=== PATIENT | male | born 1940 | race Caucasian/White ===

== ENCOUNTER 2018-11-04 22:15 | Inpatient (IN) ==
[2018-11-04] MEDS ORDERED: *HR* Dextrose 50 % in Water (Syg) 50 ML SYRINGE IVP ONE (22:28)
[2018-11-04] MEDS ORDERED: 0.9 % Sodium Chloride 1,000 ML IV ONE ×2 (22:29→23:53)
[2018-11-04] MEDS ORDERED: *HR* Dextrose 50 % in Water (Syg) 50 ML SYRINGE ONE (22:45)
[2018-11-04 23:00] LABS: Basophils % 0.1 %; Eosinophils % 0.1 %; Hematocrit 34.3 % (37.5-50.1); Immature Granulocytes % 0.7 % (0-4); Lymphocytes % 6.5 %; Mean Corpuscular HGB Conc 32.1 g/dL (31.6-35.5); Mean Corpuscular Hemoglobin 30.1 pg (28.0-33.3); Mean Corpuscular Volume 93.7 fL (83.0-100.0); Mean Platelet Volume 9.9 fL (9.4-12.4); Monocytes # 1.6 K/mcL (0.0-1.3); Monocytes % 10.2 %; Neutrophils # 12.6 K/mcL (1.6-8.9); Platelet Count 282 K/mcL (140-400); Red Blood Count 3.66 M/mcL (4.19-5.50); Red Cell Distribution Width 15.3 % (11.5-14.5); Segmented Neutrophils % 82.4 %; White Blood Count 15.3 K/mcL (4.3-11.1)
--- NOTE | 2018-11-04 23:14 | Emergency Department Note ---
Disposition Clinical Impression: Hypoglycemia, KANDIS (acute kidney injury), Pyelonephritis Disposition: Admitted As Inpatient Condition: Fair Time of Disposition: 05:45 General Adult HPI - General Chief complaint: ED General Medical Stated complaint: Low blood sugar Time Seen by Provider: 11/04/18 22:25 Source: patient, family, EMS Limitations: no limitations Nursing Notes Reviewed: Yes Vital Signs Reviewed: Yes - History of Present Illness HPI Narrative: Alejandro Horton is a 78-year-old male with past medical history of type 2 diabetes, and hypertension who presents via ambulance from home with hypoglycemia. The patient was found to have a point of care blood sugar of 49 by EMS. Oral glucose via jalousies installer raised the blood sugar to the mid 50s. Upon arrival the patient is alert and oriented, and responding appropriately to questions. He states that he has not eaten or drank in the past 2 days, and he woke up with nausea and vomiting this morning. Denies any fevers, chills, shortness of breath, chest pain, constipation, diarrhea. He states that 2 days ago he drove 140 miles from [facility] in a car without air conditioning, and has not felt well since. The patient also admits to taking his diabetes medicine for the past 2 days as well even without eating or drinking. He currently takes Actos, metformin, and glyburide. He also endorses a recent history of an obstructing kidney stone with possible pyelo-nephritis. Patient also had a mechanical fall earlier today. He denies hitting his head he denies the use of blood thinner. His states he tripped on a rug near the back do or and she held him up. Pain Scale: 0 - Related Data Home Medications Medication Instructions Recorded Confirmed Aspirin 81 mg PO DAILY 10/13/16 11/04/18 GlipiZIDE XL (24 HR) [Glucotrol XL] 10 mg PO BID 10/13/16 11/04/18 Lisinopril [Zestril] 40 mg PO DAILY 10/13/16 11/04/18 Metformin HCl [Glucophage] 1,000 mg PO BID 10/13/16 11/04/18 Pioglitazone HCl [Actos] 30 mg PO HS 10/13/16 11/04/18 Simvastatin [Zocor] 40 mg PO DAILY 10/13/16 11/04/18 hydroCHLOROthiazide 25 mg PO DAILY 10/13/16 11/04/18 [Hydrochlorothiazide] Allergies Allergy/AdvReac Type Severity Reaction Status Date / Time chocolate flavor Allergy Rash Verified 10/16/18 02:53 All systems ED: reviewed and negative except as stated. Constitutional: Reports: weakness. Denies: fever, chills Cardiovascular: Denies: chest pain Respiratory: Denies: cough, dyspnea, wheezes Gastrointestinal: Reports: nausea, vomiting. Denies: diarrhea, constipation Genitourinary: Denies: urgency, dysuria Neurological: Reports: weakness. Denies: headache, numbness, paresthesias, confusion Endocrine: Reports: fatigue. Denies: polydipsia, polyuria Past Medical History - Past Medical History Medical history: Reports: diabetes, hypertension Psychiatric history: Reports: no psych history - Social History Smoking Status: Never smoker Smokeless Tobacco Status: No Alcohol use: Reports: none Drug use: Reports: none Physical Exam GENERAL EXAM Vital signs noted, please see nurses notes. General: Well-developed, well-nourished patient lying in bed who appears non- toxic. Head: Atraumatic, normocephalic. Eyes: Sclera anicteric. ENT: Mucous membranes are dry. Heart: Regular rate and rhythm without appreciable murmur, gallops, or rubs. Lungs: Normal respiratory pattern without distress, lungs clear to auscultation b/l. Abdomen: Soft, non-tender, non-distended, no guarding or peritoneal signs. Skin: Warm, Forehead is diaphoretic There are some scattered abrasions to the left lower extremity. Neurologic: Awake and alert with normal speech and mental status. Pupils are equal. Moves all extremities equally well. No focal deficits or lateralizing signs. Psychiatric: Mood and affect appropriate. Musculoskeletal: No peripheral edema. No signs of DVT. - General Limitations: no limitations General appearance: alert Course Course Narrative: Patient came in with a blood sugar of 49. An amp of D50 was provided, a saline bolus was provided, and basic labs were drawn to rule out infection. - Reevaluation(s) Reevaluation #1: 11:20 PM, repeat blood sugar was 147. The patient is resting comfortably. Reevaluation #2: The blood sugar was 112 Time: 00:52 Vital Signs Temperature 100.2 F H 11/04/18 22:22 Pulse Rate 88 11/04/18 22:22 Respiratory Rate 18 11/04/18 22:22 Blood Pressure 137/64 11/04/18 22:22 O2 Sat by Pulse Oximetry 96 11/04/18 22:22 Temperature 99.0 F 11/05/18 03:02 Pulse Rate 86 11/05/18 03:02 Respiratory Rate 16 11/05/18 03:02 Blood Pressure 127/71 11/05/18 03:02 O2 Sat by Pulse Oximetry 97 11/05/18 03:02 Oxygen Delivery Oxygen Delivery Room Air Medical Decision Making - MDM Narrative Medical decision making narrative: The patient was treated upon arrival in the emergency department. His medical history was reviewed and, they detailed history and physical exam was obtained from the patient. A point of care glucose was taken at the bedside, and was 47. The patient was provided with an orange juice. Basic labs labs were ordered, as well as blood cultures and a lactate. An EKG, and CT of the abdomen and pelvis were ordered. Additionally the patient was provided with an amp of D50 to increase his blood sugar. Repeat blood sugar after D50 was in the 160s. Blood sugars were drawn every 30 minutes. The patient had underlying nausea and vomiting, prior to the hypoglycemic episode. An infectious cause is the most likely etiology, as he recently was at the hospital for an obstructing kidney stone, that showed signs of perinephric fat stranding, with possible pyelonephritis. The patient does have an elevated white count at 15.3 with a left shift, and an acute kidney injury. Fluids were be provided for the acute kidney injury. CT of the abdomen and pelvis showed the aforementioned stone had most likely passed, there was no obstruction, but there was most likely an acute inflammatory process, with possible pyelonephritis. Urinalysis showed a urinary tract infection. We will provide 2 g of IV Rocephin for the infection. The patient will be admitted to the hospital under the care of Dr. Field. He is in agreement with this plan. - Medical Records Medical records reviewed: Yes I reviewed the patient's medical records. - Lab Data Lab results reviewed: Yes I reviewed the patient's lab results. Result diagrams: 11/05/18 04:57 11/04/18 22:47 Lab Results 11/04/18 11/04/18 11/04/18 Range/Units 22:47 22:47 22:47 WBC 15.3 H (4.3-11.1) K/mcL RBC 3.66 L (4.19-5.50) M/mcL Hgb 11.0 L (12.9-16.9) g/dL Hct 34.3 L (37.5-50.1) % MCV 93.7 (83.0-100.0) fL MCH 30.1 (28.0-33.3) pg MCHC 32.1 (31.6-35.5) g/dL RDW 15.3 H (11.5-14.5) % Plt Count 282 (140-400) K/mcL MPV 9.9 (9.4-12.4) fL Immature Gran % 0.7 (0-4) % Seg Neutrophils % 82.4 % Lymphocytes % 6.5 % Monocytes % 10.2 % Eosinophils % 0.1 % Basophils % 0.1 % Neutrophils # 12.6 H (1.6-8.9) K/mcL Lymphocytes # 1.0 (0.6-4.6) K/mcL Monocytes # 1.6 H (0.0-1.3) K/mcL Eosinophils # 0.0 (0.0-0.6) K/mcL Basophils # 0.0 (0.0-0.2) K/mcL Sodium 135 L (136-145) mEq/L Potassium 3.8 (3.5-5.1) mEq/L Chloride 102 (98-107) mEq/L Carbon Dioxide 21 L (23-29) mEq/L BUN 56 H (8-23) mg/dL Creatinine 2.51 H (0.70-1.30) mg/dL Est GFR ( Amer) 30 L (> 60) Est GFR (Non-Af Amer) 25 L (> 60) BUN/Creatinine Ratio 22 (6-26) Glucose 42 L (70-105) mg/dL Calculated Osmolality 292 (280-300) Lactic Acid 0.8 (0.5-2.2) mmol/L Calcium 8.4 L (8.6-10.3) mg/dL Total Bilirubin 0.4 (0.3-1.0) mg/dL AST 32 (13-39) Units/L ALT 21 (7-52) Units/L Alkaline Phosphatase 62 (34-104) Units/L Serum Total Protein 6.6 (6.4-8.9) g/dL Albumin 3.3 L (3.5-5.7) g/dL Globulin 3.3 (2.4-3.5) g/dL Albumin/Globulin Ratio 1.0 L (1.1-2.2) Urine Color (Yellow) Urine Clarity (Clear) Urine pH (5.0-8.0) pH Units Ur Specific [place] (1.010-1.025) Urine Protein (Neg-Trace) mg/dL Urine Glucose (UA) (Normal) mg/dL Urine Ketones (Negative) mg/dL Urine Blood (Negative) Urine Nitrite (Negative) Urine Bilirubin (Negative) Urine Urobilinogen (Normal) mg/dL Ur Leukocyte Esterase (Negative) Urine Microscopic RBC (0-3) per hpf Urine Microscopic WBC (0-3) per hpf Ur Squamous Epith Cells (None-Few) per lpf Urine Bacteria (None-Few) per hpf Hyaline Casts (None-Few) per lpf Ur Culture Indicated? (NO) 11/05/18 Range/Units 00:35 WBC (4.3-11.1) K/mcL RBC (4.19-5.50) M/mcL Hgb (12.9-16.9) g/dL Hct (37.5-50.1) % MCV (83.0-100.0) fL MCH (28.0-33.3) pg MCHC (31.6-35.5) g/dL RDW (11.5-14.5) % Plt Count (140-400) K/mcL MPV (9.4-12.4) fL Immature Gran % (0-4) % Seg Neutrophils % % Lymphocytes % % Monocytes % % Eosinophils % % Basophils % % Neutrophils # (1.6-8.9) K/mcL Lymphocytes # (0.6-4.6) K/mcL Monocytes # (0.0-1.3) K/mcL Eosinophils # (0.0-0.6) K/mcL Basophils # (0.0-0.2) K/mcL Sodium (136-145) mEq/L Potassium (3.5-5.1) mEq/L Chloride (98-107) mEq/L Carbon Dioxide (23-29) mEq/L BUN (8-23) mg/dL Creatinine (0.70-1.30) mg/dL Est GFR ( Amer) (> 60) Est GFR (Non-Af Amer) (> 60) BUN/Creatinine Ratio (6-26) Glucose (70-105) mg/dL Calculated Osmolality (280-300) Lactic Acid (0.5-2.2) mmol/L Calcium (8.6-10.3) mg/dL Total Bilirubin (0.3-1.0) mg/dL AST (13-39) Units/L ALT (7-52) Units/L Alkaline Phosphatase (34-104) Units/L Serum Total Protein (6.4-8.9) g/dL Albumin (3.5-5.7) g/dL Globulin (2.4-3.5) g/dL Albumin/Globulin Ratio (1.1-2.2) Urine Color Yellow (Yellow) Urine Clarity Cloudy A (Clear) Urine pH 5.5 (5.0-8.0) pH Units Ur Specific [place] 1.016 (1.010-1.025) Urine Protein 100 H (Neg-Trace) mg/dL Urine Glucose (UA) Normal (Normal) mg/dL Urine Ketones Negative (Negative) mg/dL Urine Blood Moderate H (Negative) Urine Nitrite Positive A (Negative) Urine Bilirubin Negative (Negative) Urine Urobilinogen Normal (Normal) mg/dL Ur Leukocyte Esterase Moderate H (Negative) Urine Microscopic RBC 5-15 H (0-3) per hpf Urine Microscopic WBC 50-100 H (0-3) per hpf Ur Squamous Epith Cells Many H (None-Few) per lpf Urine Bacteria Many H (None-Few) per hpf Hyaline Casts Few (None-Few) per lpf Ur Culture Indicated? YES A (NO) - Radiology Data Radiology results reviewed: Yes I reviewed the patient's radiology results. Abdomen/Pelvis CT 11/04/18 23:14 IMPRESSION: There are acute inflammatory/edematous changes involving the left kidney. The left kidney is enlarged, there is perinephric and peripelvic fat stranding and there is slight dilatation of the left renal collecting system and ureter with no evidence of an obstructing radiopaque calculus. Recent passage of a calculus is suspected. Manifestation of infection is also a consideration and clinical correlation is recommended. D/ / Dylan Cunningham MD / Dylan Cunningham MD Interpreting Provider: Dylan Cunningham MD Chest X-Ray 11/04/18 23:32 IMPRESSION: No acute findings in the chest. D/ / Bernadine English MD / Bernadine English MD Interpreting Provider: Bernadine English MD - EKG Data EKG #1 EKG results narrative: EKG was interpreted by me. The rhythm is normal sinus rhythm, the rate is regular and 89 bpm. The axis is normal. Possible left anterior fascicular block. The QRS duration is within normal limits 102 the QTC is within normal limits 410. There are no ST elevations or depressions and no T-wave inversions or hyper acuity. There is no evidence of pathologic Q waves. The R-wave progression is poor. There is no evidence of WPW, Brugada, HOCM.
[2018-11-04 23:19] LABS: Albumin 3.3 g/dL (3.5-5.7); Bilirubin,Total 0.4 mg/dL (0.3-1.0); Calcium 8.4 mg/dL (8.6-10.3); Globulin 3.3 g/dL (2.4-3.5); Potassium 3.8 mEq/L (3.5-5.1); Total Protein 6.6 g/dL (6.4-8.9)
[2018-11-05 01:04] LABS: Bilirubin,Urine Negative (Negative); Blood,Urine Moderate (Negative); Clarity,Urine Cloudy (Clear); Color,Urine Yellow (Yellow); Glucose,Urine (UA) Normal (Normal); Ketones,Urine Negative (Negative); Leukocyte Esterase,Urine Moderate (Negative); Nitrite,Urine Positive (Negative); PH,Urine 5.5 pH Units (5.0-8.0); Protein,Urine 100 mg/dL (Neg-Trace); Specific Gravity,Urine 1.016 (1.010-1.025); Urobilinogen,Urine Normal (Normal)
[2018-11-05 01:07] LABS: Bacteria,Urine Many per hpf (None-Few); Hyaline Casts,Urine Few per lpf (None-Few); Squamous Epithelial Cell,Urine Many per lpf (None-Few); WBC,Urine 50-100 per hpf (0-3)
[2018-11-05] MEDS ORDERED: cefTRIAXone 2,000 MG in Water for inj. (sterile) 20 ML IVP ONE (01:11)
[2018-11-05] MEDS ORDERED: traMADol 50 MG TABLET PO PRN (01:38)
[2018-11-05] MEDS ORDERED: Acetaminophen 325 MG TABLET PO PRN (01:38)
[2018-11-05] MEDS ORDERED: Naloxone 0.4 MG/ML INJ IVP PRN (01:38)
[2018-11-05] MEDS ORDERED: *HR* Dextrose 50 % in Water (Syg) 50 ML SYRINGE IVP PRN (01:39)
[2018-11-05] MEDS ORDERED: Dextrose Gel 15 GM/37.5 ML TUBE PO PRN ×2 (01:39)
[2018-11-05] MEDS ORDERED: 0.9 % Sodium Chloride 1,000 ML IVC SCH (01:45)
[2018-11-05] MEDS ORDERED: Ondansetron 4 MG/2 ML VIAL IVP ONE (01:47)
--- NOTE | 2018-11-05 02:05 | Internal Med History&Physical ---
Date of Encounter: 11/05/18 Time of Encounter: 02:04 Internal Medicine - H&P: HPI Chief complaint: AMS Admitted From: Home Plans for Post Hospital Care: Home History of present illness: Alejandro Horton is a 78-year-old man with hypertension and diabetes who has been feeling unwell over the last few days and was brought to the emergency room via EMS for hypoglycemia. It is stated that he was found with a glucose of 49, reporting he had not eaten and drank in the last 2 days because of nausea and vomiting with generalized malaise but continued to take his diabetic medications despite his poor intake. He reports to being diagnosed with an obstructive kidney stone about 2 weeks ago and was to undergo expectant observation for management. In the ER he was found to have low-grade fever with lab work rem arkable for leukocytosis and elevated serum creatinine. His urine was cloudy with nitrites, leukocyte esterase and pyuria. CT scan showed inflammatory/edematous changes involving the left kidney area nephric and peripelvic fat stranding and slight dilation of the left renal collecting system with no evidence of an obstructing calculus suggesting recent passage of one. He tells me his urine output has been poor over the last few days because of all of this. He was started on fluids and empiric antibiotics, admitted for ongoing care. Vitals: Reviewed General: Elderly man who appears to have malaise and lying on his right side. Skin: Warm, dry. HEENT: Dry mucous membranes. No conjunctivae pallor. Neck: No lymphadenopathy. No JVD. No carotid bruits. No palpable thyroid. Chest: Normal thoracic expansion. Normal breath sounds. Clear to auscultation. Heart: Normal S1 & S2; rhythmic. No rubs or murmurs. Abdomen: Non-distended, soft and non-tender to palpation. No peritoneal reaction. Extremities: No clubbing, cyanosis. 1+ lower extremity edema. No calf tenderness. Normal distal pulses. Neurological: Awake, alert and oriented to person, place and time. No focal deficits. Psych: Affect appropriate. Assessment/Plan 1. Pyelonephritis: As evidenced by the inflammatory kidney changes seen on imaging with leukocytosis, low grade fever and a notable urinalysis likely stemming from the recent obstructive calculus seen on CT of 10/16. Blood and urine cultures have been obtained. Will keep him empirically on ceftriaxone pending culture data, fluid resuscitation, analgesics/antipyretics as needed. 2. Hypoglycemia: Secondary to poor oral intake from nausea and vomiting while continuing to take antidiabetic medications. Will hold all agents for now, start diet as tolerated and monitor him on insulin sliding scale. 3. Acute kidney injury: Pre-renal in etiology from volume depletion. Will continue fluid resuscitation and monitor BMP. 4. Hypertension: Will hold HCTZ and Lisinopril for now due to dehydration and KANDIS, also noting that his BP values are towards the lower end of normal. Once more stabilized and homeostasis is achieved, these agents can be resumed. 5. Diabetes: Trending his A1C values that go back to 2013, the highest value is 6.4% which is not consistent with the diagnosis of diabetes. It is unclear where he was formally diagnosed with this and placed on 3 different oral agents for diabetes a it appears pre-diabetes is more consistent with his values and perhaps does not require such aggressive therapies. Communication with his PCP will be necessary and review of outside lab values if available. Past Med Surg Social Fam HX - Past Medical History Medical history: diabetes, hypertension Psychiatric history: no psych history - Social History Smoking Status: Never smoker Smokeless Tobacco Status: No Alcohol use: none Drug use: none Internal Medicine - H&P: Meds Aspirin 81 mg PO DAILY 10/13/16 [History] GlipiZIDE XL (24 HR) [Glucotrol XL] 10 mg PO BID 10/13/16 [History] Lisinopril [Zestril] 40 mg PO DAILY 10/13/16 [History] Metformin HCl [Glucophage] 1,000 mg PO BID 10/13/16 [History] Pioglitazone HCl [Actos] 30 mg PO HS 10/13/16 [History] Simvastatin [Zocor] 40 mg PO DAILY 10/13/16 [History] hydroCHLOROthiazide [Hydrochlorothiazide] 25 mg PO DAILY 10/13/16 [History] Allergy/AdvReac Type Severity Reaction Status Date / Time chocolate flavor Allergy Rash Verified 10/16/18 02:53 All Systems PM: A 10-system review of systems was performed and is negative for pertinent findings except as documented above in the HPI. Family history reviewed and found non-contributory. - Constitutional Vitals: Temp Pulse Resp BP Pulse Ox 100.2 F H 88 18 118/62 95 11/04/18 22:22 11/04/18 23:26 11/05/18 01:55 11/05/18 01:55 11/04/18 23:26 Exam: . Internal Med - H&P Results - Labs CBC & Chem 7: 11/04/18 22:47 11/04/18 22:47 Labs: Short CBC 11/04/18 Range/Units 22:47 WBC 15.3 H (4.3-11.1) K/mcL Hgb 11.0 L (12.9-16.9) g/dL Hct 34.3 L (37.5-50.1) % Plt Count 282 (140-400) K/mcL Neutrophils # 12.6 H (1.6-8.9) K/mcL BMP 11/04/18 22:47 Sodium 135 L Potassium 3.8 Chloride 102 Carbon Dioxide 21 L BUN 56 H Creatinine 2.51 H Glucose 42 L Calcium 8.4 L Liver Function 11/04/18 Range/Units 22:47 Total Bilirubin 0.4 (0.3-1.0) mg/dL AST 32 (13-39) Units/L ALT 21 (7-52) Units/L Alkaline Phosphatase 62 (34-104) Units/L Albumin 3.3 L (3.5-5.7) g/dL Urine 11/05/18 Range/Units 00:35 Urine Color Yellow (Yellow) Urine Clarity Cloudy A (Clear) Urine pH 5.5 (5.0-8.0) pH Units Ur Specific [place] 1.016 (1.010-1.025) Urine Protein 100 H (Neg-Trace) mg/dL Urine Glucose (UA) Normal (Normal) mg/dL - Impressions ITS Impressions Abdomen/Pelvis CT 11/04/18 23:14 IMPRESSION: There are acute inflammatory/edematous changes involving the left kidney. The left kidney is enlarged, there is perinephric and peripelvic fat stranding and there is slight dilatation of the left renal collecting system and ureter with no evidence of an obstructing radiopaque calculus. Recent passage of a calculus is suspected. Manifestation of infection is also a consideration and clinical correlation is recommended. D/ / Dylan Cunningham MD / Dylan Cunningham MD Interpreting Provider: Dylan Cunningham MD Chest X-Ray 11/04/18 23:32 IMPRESSION: No acute findings in the chest. D/ / Bernadine English MD / Bernadine English MD Interpreting Provider: Bernadine English MD - Time Spent With Patient Total time spent is greater than 50% in coordination of care (as documented) at patient's floor/unit and/or counseling patient: Greater than 35 minutes
--- NOTE | 2018-11-05 02:13 | Emergency Department Note ---
Disposition Clinical Impression: Hypoglycemia, KANDIS (acute kidney injury), Pyelonephritis Disposition: Admitted As Inpatient Condition: Fair Time of Disposition: 01:45 General Adult HPI - General Chief complaint: ED General Medical Stated complaint: Low blood sugar Time Seen by Provider: 11/04/18 22:25 Source: patient, family, EMS Limitations: no limitations Nursing Notes Reviewed: Yes Vital Signs Reviewed: Yes - History of Present Illness Pain Scale: 0 - Related Data Home Medications Medication Instructions Recorded Confirmed Aspirin 81 mg PO DAILY 10/13/16 11/04/18 GlipiZIDE XL (24 HR) [Glucotrol XL] 10 mg PO BID 10/13/16 11/04/18 Lisinopril [Zestril] 40 mg PO DAILY 10/13/16 11/04/18 Metformin HCl [Glucophage] 1,000 mg PO BID 10/13/16 11/04/18 Pioglitazone HCl [Actos] 30 mg PO HS 10/13/16 11/04/18 Simvastatin [Zocor] 40 mg PO DAILY 10/13/16 11/04/18 hydroCHLOROthiazide 25 mg PO DAILY 10/13/16 11/04/18 [Hydrochlorothiazide] Allergies Allergy/AdvReac Type Severity Reaction Status Date / Time chocolate flavor Allergy Rash Verified 10/16/18 02:53 Constitutional: Reports: weakness. Denies: fever, chills Cardiovascular: Denies: chest pain Respiratory: Denies: cough, dyspnea, wheezes Gastrointestinal: Reports: nausea, vomiting. Denies: diarrhea, constipation Genitourinary: Denies: urgency, dysuria Neurological: Reports: weakness. Denies: headache, numbness, paresthesias, confusion Endocrine: Reports: fatigue. Denies: polydipsia, polyuria Past Medical History - Past Medical History Medical history: Reports: diabetes, hypertension Psychiatric history: Reports: no psych history - Social History Smoking Status: Never smoker Smokeless Tobacco Status: No Alcohol use: Reports: none Drug use: Reports: none Physical Exam - General Limitations: no limitations General appearance: alert Course Vital Signs Temperature 100.2 F H 11/04/18 22:22 Pulse Rate 88 11/04/18 22:22 Respiratory Rate 18 11/04/18 22:22 Blood Pressure 137/64 11/04/18 22:22 O2 Sat by Pulse Oximetry 96 11/04/18 22:22 Temperature 99.1 F 11/05/18 06:47 Pulse Rate 89 11/05/18 06:47 Respiratory Rate 18 11/05/18 06:47 Blood Pressure 131/71 11/05/18 06:47 O2 Sat by Pulse Oximetry 96 11/05/18 06:47 Oxygen Delivery Oxygen Delivery Room Air Medical Decision Making - Medical Records Medical records reviewed: Yes I reviewed the patient's medical records. - Lab Data Lab results reviewed: Yes I reviewed the patient's lab results. Result diagrams: 11/05/18 04:57 11/04/18 22:47 Lab Results 11/04/18 11/04/18 11/04/18 Range/Units 22:47 22:47 22:47 WBC 15.3 H (4.3-11.1) K/mcL RBC 3.66 L (4.19-5.50) M/mcL Hgb 11.0 L (12.9-16.9) g/dL Hct 34.3 L (37.5-50.1) % MCV 93.7 (83.0-100.0) fL MCH 30.1 (28.0-33.3) pg MCHC 32.1 (31.6-35.5) g/dL RDW 15.3 H (11.5-14.5) % Plt Count 282 (140-400) K/mcL MPV 9.9 (9.4-12.4) fL Immature Gran % 0.7 (0-4) % Seg Neutrophils % 82.4 % Lymphocytes % 6.5 % Monocytes % 10.2 % Eosinophils % 0.1 % Basophils % 0.1 % Neutrophils # 12.6 H (1.6-8.9) K/mcL Lymphocytes # 1.0 (0.6-4.6) K/mcL Monocytes # 1.6 H (0.0-1.3) K/mcL Eosinophils # 0.0 (0.0-0.6) K/mcL Basophils # 0.0 (0.0-0.2) K/mcL Sodium 135 L (136-145) mEq/L Potassium 3.8 (3.5-5.1) mEq/L Chloride 102 (98-107) mEq/L Carbon Dioxide 21 L (23-29) mEq/L BUN 56 H (8-23) mg/dL Creatinine 2.51 H (0.70-1.30) mg/dL Est GFR ( Amer) 30 L (> 60) Est GFR (Non-Af Amer) 25 L (> 60) BUN/Creatinine Ratio 22 (6-26) Glucose 42 L (70-105) mg/dL Calculated Osmolality 292 (280-300) Lactic Acid 0.8 (0.5-2.2) mmol/L Calcium 8.4 L (8.6-10.3) mg/dL Total Bilirubin 0.4 (0.3-1.0) mg/dL AST 32 (13-39) Units/L ALT 21 (7-52) Units/L Alkaline Phosphatase 62 (34-104) Units/L Serum Total Protein 6.6 (6.4-8.9) g/dL Albumin 3.3 L (3.5-5.7) g/dL Globulin 3.3 (2.4-3.5) g/dL Albumin/Globulin Ratio 1.0 L (1.1-2.2) Urine Color (Yellow) Urine Clarity (Clear) Urine pH (5.0-8.0) pH Units Ur Specific [place] (1.010-1.025) Urine Protein (Neg-Trace) mg/dL Urine Glucose (UA) (Normal) mg/dL Urine Ketones (Negative) mg/dL Urine Blood (Negative) Urine Nitrite (Negative) Urine Bilirubin (Negative) Urine Urobilinogen (Normal) mg/dL Ur Leukocyte Esterase (Negative) Urine Microscopic RBC (0-3) per hpf Urine Microscopic WBC (0-3) per hpf Ur Squamous Epith Cells (None-Few) per lpf Urine Bacteria (None-Few) per hpf Hyaline Casts (None-Few) per lpf Ur Culture Indicated? (NO) 11/05/18 Range/Units 00:35 WBC (4.3-11.1) K/mcL RBC (4.19-5.50) M/mcL Hgb (12.9-16.9) g/dL Hct (37.5-50.1) % MCV (83.0-100.0) fL MCH (28.0-33.3) pg MCHC (31.6-35.5) g/dL RDW (11.5-14.5) % Plt Count (140-400) K/mcL MPV (9.4-12.4) fL Immature Gran % (0-4) % Seg Neutrophils % % Lymphocytes % % Monocytes % % Eosinophils % % Basophils % % Neutrophils # (1.6-8.9) K/mcL Lymphocytes # (0.6-4.6) K/mcL Monocytes # (0.0-1.3) K/mcL Eosinophils # (0.0-0.6) K/mcL Basophils # (0.0-0.2) K/mcL Sodium (136-145) mEq/L Potassium (3.5-5.1) mEq/L Chloride (98-107) mEq/L Carbon Dioxide (23-29) mEq/L BUN (8-23) mg/dL Creatinine (0.70-1.30) mg/dL Est GFR ( Amer) (> 60) Est GFR (Non-Af Amer) (> 60) BUN/Creatinine Ratio (6-26) Glucose (70-105) mg/dL Calculated Osmolality (280-300) Lactic Acid (0.5-2.2) mmol/L Calcium (8.6-10.3) mg/dL Total Bilirubin (0.3-1.0) mg/dL AST (13-39) Units/L ALT (7-52) Units/L Alkaline Phosphatase (34-104) Units/L Serum Total Protein (6.4-8.9) g/dL Albumin (3.5-5.7) g/dL Globulin (2.4-3.5) g/dL Albumin/Globulin Ratio (1.1-2.2) Urine Color Yellow (Yellow) Urine Clarity Cloudy A (Clear) Urine pH 5.5 (5.0-8.0) pH Units Ur Specific [place] 1.016 (1.010-1.025) Urine Protein 100 H (Neg-Trace) mg/dL Urine Glucose (UA) Normal (Normal) mg/dL Urine Ketones Negative (Negative) mg/dL Urine Blood Moderate H (Negative) Urine Nitrite Positive A (Negative) Urine Bilirubin Negative (Negative) Urine Urobilinogen Normal (Normal) mg/dL Ur Leukocyte Esterase Moderate H (Negative) Urine Microscopic RBC 5-15 H (0-3) per hpf Urine Microscopic WBC 50-100 H (0-3) per hpf Ur Squamous Epith Cells Many H (None-Few) per lpf Urine Bacteria Many H (None-Few) per hpf Hyaline Casts Few (None-Few) per lpf Ur Culture Indicated? YES A (NO) - Radiology Data Radiology results reviewed: Yes I reviewed the patient's radiology results. Abdomen/Pelvis CT 11/04/18 23:14 IMPRESSION: There are acute inflammatory/edematous changes involving the left kidney. The left kidney is enlarged, there is perinephric and peripelvic fat stranding and there is slight dilatation of the left renal collecting system and ureter with no evidence of an obstructing radiopaque calculus. Recent passage of a calculus is suspected. Manifestation of infection is also a consideration and clinical correlation is recommended. D/ / Dylan Cunningham MD / Dylan Cunningham MD Interpreting Provider: Dylan Cunningham MD Chest X-Ray 11/04/18 23:32 IMPRESSION: No acute findings in the chest. D/ / Bernadine English MD / Berandine English MD Interpreting Provider: Bernadine English MD - EKG Data EKG #1 EKG attestation: Yes I reviewed and interpreted this EKG. EKG results narrative: EKG shows normal sinus rhythm with ventricular rate of 89. Left axis deviation. No significant acute ST segment elevation or depression. No arrhythmia or ectopy. Critical Care Time Critical Care Time: Yes Total Critical Care Time: 45 Attestation: Critical care performed: Time is exclusive of separately billable procedures. Time includes: direct patient care, patient reassessment, coordination of patient care, interpretation of data (laboratory data, radiology data, and respiratory data), review of patient's medical records, medical consultation and documentation of patient care. Procedures included in critical care time: Procedures excluded from critical care time: Attestation Statement - Attestation Attestation: ICameron MD, personally evaluated this patient and discussed their management with the resident physician. I reviewed the resident's note and agree with the documented findings, medical decision making, and plan of care. I reviewed the residents documentation and agree with the residents assessment and plan of care. I have personally had face to face time with the patient. I personally supervised and was present for the parker/critical portions of the following procedures completed by the resident: EKG interpretation. 78-year-old male presents to the emergency department with a 2 day history of nausea and vomiting and increasing generalized weakness. And reports that 2 days ago he drove several hours in a car with no air conditioning and got very hot. Since then he has not felt well. This evening he apparently became weak and slid out of his chair to the floor and his could not get him up from the floor. She had to call EMS to help get him up. Family reports that for the past 2 days he has been vomiting and not keeping anything down. He is diabetic and has continued to take his medications. He was found to be hypoglycemic by EMS. He was given some oral glucose and his blood sugar did improve but only into the 50s. On examination patient is a well-developed well-nourished elderly male in no acute distress. He is alert and oriented 3. There is no cyanosis or diaphoresis. Breath sounds are clear and equal bilaterally. Heart regular rate and rhythm. Abdomen is soft with slightly increased bowel sounds. Mild diffuse tenderness. No guarding or rebound tenderness. One plus pedal edema. No gross focal neurological deficits. EKG shows normal sinus rhythm with ventricular rate of 89. Left axis deviation. No significant acute ST segment elevation or depression. No arrhythmia or ectopy. Chest x-ray negative. CT of the abdomen and pelvis shows left perinephric stranding and fluid consistent with pyelonephritis. Labs reviewed. Blood cultures obtained and IV antibiotics initiated. The hospitalist, Dr. Field, was consulted and accepted admission of the patient.
[2018-11-05] MEDS: *HR* Heparin 5,000 UNIT/ML VIAL SQ SCH ×2 (05:08→17:37)
[2018-11-05 07:13] LABS: Basophils % 0.2 %; Eosinophils % 0.2 %; Hematocrit 33.6 % (37.5-50.1); Hemoglobin 10.9 g/dL (12.9-16.9); Lymphocytes # 1.7 K/mcL (0.6-4.6); Lymphocytes % 10.4 %; Mean Corpuscular HGB Conc 32.4 g/dL (31.6-35.5); Mean Corpuscular Volume 92.6 fL (83.0-100.0); Mean Platelet Volume 11.2 fL (9.4-12.4); Monocytes # 1.6 K/mcL (0.0-1.3); Monocytes % 9.9 %; Neutrophils # 12.8 K/mcL (1.6-8.9); Platelet Count 251 K/mcL (140-400); Red Blood Count 3.63 M/mcL (4.19-5.50); Red Cell Distribution Width 15.1 % (11.5-14.5); Segmented Neutrophils % 78.3 %; White Blood Count 16.4 K/mcL (4.3-11.1)
[2018-11-05] MEDS: Aspirin 81 MG TAB.CHEW PO SCH (07:38)
[2018-11-05 07:46] LABS: Calcium 8.6 mg/dL (8.6-10.3); Potassium 4.1 mEq/L (3.5-5.1)
[2018-11-05] MEDS ORDERED: *HR* Dextrose 50 % in Water (Syg) 50 ML SYRINGE IVP ONE (08:10)
[2018-11-05] MEDS ORDERED: D5% in 0.9% NACL 1,000 ML IVC SCH (08:15)
[2018-11-05] MEDS: Insulin LISPRO 300 UNITS/3 ML VIAL SQ SCH ×4 (08:17→21:19)
--- NOTE | 2018-11-05 08:27 | Internal Med Progress Note ---
<Saúl Torres L - Last Filed: 11/05/18 18:25> Hospitalist Progress Note - Encounter Date of Encounter: 11/05/18 Time of Encounter: 08:25 - Subjective Interval History: Patient seen and examined. Glucose measured at 28 from 5 AM. Patient groggy/lethargic when seen. Able to answer simple questions and following commands. Reports having nausea and vomiting before being admitted. History difficult to obtain due to lethargy. Patient given 1 amp D50. In normal saline and switch to D5 normal saline. - Exam Vitals: Temp Pulse Resp BP Pulse Ox 99.1 F 89 18 131/71 96 11/05/18 06:47 11/05/18 06:47 11/05/18 06:47 11/05/18 06:47 11/05/18 06:47 Exam: Gen: Vitals noted. No acute distress. Lethargic, but arousable Eyes: anicteric sclerae, moist conjunctivae; no lid-lag; Pupils equal, round, and reactive to light HENT: Atraumatic, normocephalic; oropharynx clear with moist mucous membranes and no mucosal ulcerations Neck: Trachea midline; supple, no thyromegaly or lymphadenopathy Cardiac: RRR, no murmurs, rubs or gallops, S1/S2 Pulmonary: CTA bilaterally, no wheezes, rales or rhonchi, equal chest expansion Abdomen: soft, nontender, no rigidity or guarding. No masses or hepatosplenomegaly MSK: ROM intact, no joint swelling noted Extremities: no BLE edema, nontender calf, no cyanosis or clubbing Skin: Normal temperature, turgor and texture; no rash, ulcers or subcutaneous nodules Neuro: moves all extremities, no focal deficits. Psych: Appropriate mood and behavior. A&Ox2 - Assessment and Plan (1) Pyelonephritis Current Visit: Yes Status: Acute Assessment and Plan: Recent Diagnosis of obstructive kidney stone - Low grade fever, 100.2, and leukocytosis 15.3 on admission - CT ab/pel: acute evidence of left-sided pyelonephritis: perinephric fat stranding. No obstructing calculus - Blood cultures: Gram positive rods - urine cultures pending - UA: cloudy, positve nitrite and leuk esterase Plan: - IV fluid hydration - Rocephin 1g daily (2) Hypoglycemia Current Visit: Yes Status: Acute Assessment and Plan: Patient presented with hypoglycemia. - Hx of type 2 diabetes - Blood sugar of 49 at home by EMS, oral glucose given - No PO intake for 2 days, continued home Diabetes medications - N/V before admission Plan: - Glucose 28 this am - Given 1 amp D50 - IV NS switched to IV D5NS - Will recheck glucose - Continue to monitor glucose - Advance diet as tolerated (3) KANDIS (acute kidney injury) Current Visit: Yes Status: Acute Assessment and Plan: Acute kidney injury - Elevated creatinine - Dark urine on admission Plan: - IV fluid hydration - Continue to monitor (4) Hypertension Current Visit: Yes Status: Acute Assessment and Plan: Hx of hypertension - BPs stable - Holding home lisinopril because of KANDIS (5) Type 2 diabetes mellitus Current Visit: Yes Status: Acute Assessment and Plan: Hx of DM type II Plan: - Holding home meds - Sliding scale insulin - Continue to monitor - Diabetic diet DVT Prophylaxis: Sub Q heparin - Time Spent with Patient Total time spent is greater than 50% in coordination of care (as documented) at patient's floor/unit and/or counseling patient: Internal Medicine: Result - Labs CBC & Chem 7: 11/05/18 04:57 11/05/18 04:57 Labs: Short CBC 11/04/18 11/05/18 Range/Units 22:47 04:57 WBC 15.3 H 16.4 H (4.3-11.1) K/mcL Hgb 11.0 L 10.9 L (12.9-16.9) g/dL Hct 34.3 L 33.6 L (37.5-50.1) % Plt Count 282 251 (140-400) K/mcL Neutrophils # 12.6 H 12.8 H (1.6-8.9) K/mcL BMP 11/04/18 11/05/18 22:47 04:57 Sodium 135 L 138 Potassium 3.8 4.1 Chloride 102 103 Carbon Dioxide 21 L 21 L BUN 56 H 54 H Creatinine 2.51 H 2.19 H Glucose 42 L 28 L* Calcium 8.4 L 8.6 Liver Function 11/04/18 Range/Units 22:47 Total Bilirubin 0.4 (0.3-1.0) mg/dL AST 32 (13-39) Units/L ALT 21 (7-52) Units/L Alkaline Phosphatase 62 (34-104) Units/L Albumin 3.3 L (3.5-5.7) g/dL Urine 11/05/18 Range/Units 00:35 Urine Color Yellow (Yellow) Urine Clarity Cloudy A (Clear) Urine pH 5.5 (5.0-8.0) pH Units Ur Specific [place] 1.016 (1.010-1.025) Urine Protein 100 H (Neg-Trace) mg/dL Urine Glucose (UA) Normal (Normal) mg/dL - Impressions Impressions Abdomen/Pelvis CT 11/04/18 23:14 IMPRESSION: There are acute inflammatory/edematous changes involving the left kidney. The left kidney is enlarged, there is perinephric and peripelvic fat stranding and there is slight dilatation of the left renal collecting system and ureter with no evidence of an obstructing radiopaque calculus. Recent passage of a calculus is suspected. Manifestation of infection is also a consideration and clinical correlation is recommended. D/ / Dylan Cunningham MD / Dylan Cunningham MD Interpreting Provider: Dylan Cunningham MD Chest X-Ray 11/04/18 23:32 IMPRESSION: No acute findings in the chest. D/ / Bernadine English MD / Bernadine English MD Interpreting Provider: Bernadine English MD Consult Discharge Plan - Plan Referrals: Ray Culver MD [Primary Care Provider] - <Kathrine Alejandra - Last Filed: 11/05/18 18:53> Hospitalist Progress Note - Encounter Date of Encounter: 11/05/18 - Exam Vitals: Temp Pulse Resp BP Pulse Ox 98.0 F 98 16 128/71 96 11/05/18 16:03 11/05/18 16:03 11/05/18 16:03 11/05/18 16:03 11/05/18 16:03 - Time Spent with Patient Total time spent is greater than 50% in coordination of care (as documented) at patient's floor/unit and/or counseling patient: Internal Medicine: Result - Labs CBC & Chem 7: 11/05/18 04:57 11/05/18 04:57 Labs: Short CBC 11/04/18 11/05/18 Range/Units 22:47 04:57 WBC 15.3 H 16.4 H (4.3-11.1) K/mcL Hgb 11.0 L 10.9 L (12.9-16.9) g/dL Hct 34.3 L 33.6 L (37.5-50.1) % Plt Count 282 251 (140-400) K/mcL Neutrophils # 12.6 H 12.8 H (1.6-8.9) K/mcL BMP 11/04/18 11/05/18 22:47 04:57 Sodium 135 L 138 Potassium 3.8 4.1 Chloride 102 103 Carbon Dioxide 21 L 21 L BUN 56 H 54 H Creatinine 2.51 H 2.19 H Glucose 42 L 28 L* Calcium 8.4 L 8.6 Liver Function 11/04/18 Range/Units 22:47 Total Bilirubin 0.4 (0.3-1.0) mg/dL AST 32 (13-39) Units/L ALT 21 (7-52) Units/L Alkaline Phosphatase 62 (34-104) Units/L Albumin 3.3 L (3.5-5.7) g/dL Urine 11/05/18 Range/Units 00:35 Urine Color Yellow (Yellow) Urine Clarity Cloudy A (Clear) Urine pH 5.5 (5.0-8.0) pH Units Ur Specific [place] 1.016 (1.010-1.025) Urine Protein 100 H (Neg-Trace) mg/dL Urine Glucose (UA) Normal (Normal) mg/dL - Impressions Impressions Abdomen/Pelvis CT 11/04/18 23:14 IMPRESSION: There are acute inflammatory/edematous changes involving the left kidney. The left kidney is enlarged, there is perinephric and peripelvic fat stranding and there is slight dilatation of the left renal collecting system and ureter with no evidence of an obstructing radiopaque calculus. Recent passage of a calculus is suspected. Manifestation of infection is also a consideration and clinical correlation is recommended. D/ / Dylan Cunningham MD / Dylan Cunningham MD Interpreting Provider: Dylan Cunningham MD Chest X-Ray 11/04/18 23:32 IMPRESSION: No acute findings in the chest. D/ / Bernadine English MD / Bernadine English MD Interpreting Provider: Bernadine English MD - Attending Attestation I have seen and independently assessed this patient and I agree with plan as documented Plan Sepsis with e.coli pyelonpehritis. On ceftriaxone. Repeat blood cultures. IV fluids Hypoglycemia 2/2 to oral hypoglycemics. D50 as needed. continue diabetic diet <Saúl Torres - Last Filed: 11/05/18 18:25> (4) Hypertension Qualifiers: Hypertension type: essential hypertension Qualified Code(s): I10 - Essential (primary) hypertension (5) Type 2 diabetes mellitus Qualifiers: Diabetes mellitus lobsterman insulin use: without skilled nursing use Diabetes mellitus complication status: with hypoglycemia Diabetes mellitus complication detail: without coma Qualified Code(s): E11.649 - Type 2 diabetes mellitus with hypoglycemia without coma
[2018-11-05] MEDS ORDERED: cefTRIAXone 1,000 MG in Water for inj. (sterile) 10 ML IVP SCH (09:00)
[2018-11-05] MEDS ORDERED: NON-FORMULARY MEDICATION 1 EACH EACH (Lisinopril [Zestril] 40 MG) PO SCH (09:00)
--- NOTE | 2018-11-05 10:14 | Urology - Consult Note ---
Date of Encounter: 11/05/18 Time of Encounter: 10:14 - Assessment and Plan (1) Hydronephrosis Current Visit: Yes Status: Acute Assessment and plan: 78-year-old man with concern for left hydronephrosis after passing a recent left ureteral stone. He also has concern for urinary tract infection and fevers. He has been admitted and has been on IV antibiotic. Given that his stone is passed, I think it is reasonable to continue with IV antibiotic. His fever curve seemed to improve overnight, but he still has a leukocytosis. I will hold off on stent placement at this time. He has no other stone seen on his most recent CT scan. The hydronephrosis will likely resolve over time. We typically would repeat an ultrasound in 2-3 weeks to confirm that. Qualifiers: Hydronephrosis type: with ureteral calculous obstruction Qualified Code(s): N13.2 - Hydronephrosis with renal and ureteral calculous obstruction (2) Pyelonephritis Current Visit: Yes Status: Acute Assessment and plan: 78-year-old man with concern for pyelonephritis. Continue IV antibiotics. Await urine cultures. Urology will follow along. Urology CN:EMILIANO Consult date: 11/05/18 Reason for consult Urology: Hydronephrosis History of present illness: 78-year-old gentleman presents with low-grade fevers, flank pain, and hypoglycemia. He had left flank pain and was seen in the emergency room on 10/16/2018. A CT scan was obtained which showed a small stone within the left proximal ureter. A few days after the visit he reports that his pain has improved. He recently developed fevers. He was readmitted. A repeat CT scan showed that the stone had passed but he still had some mild left hydronephrosis. He has been afebrile overnight. Today, he says he feels better. He is denying any fevers at this time. He says his pain has resolved. He reports some difficulty getting his stream started. He feels he can empty well. Past Med Surg Social Fam HX - Past Medical History Medical history: diabetes, hypertension Psychiatric history: no psych history - Past Surgical History Surgical History: no surgical history - Social History Smoking Status: Former smoker Smokeless Tobacco Status: No Alcohol use: none Drug use: none - Family History Son Hx Family Genitourinary Disorders: Yes (Kidney stones) Medications and Allergies Aspirin 81 mg PO DAILY 10/13/16 [History] GlipiZIDE XL (24 HR) [Glucotrol XL] 10 mg PO BID 10/13/16 [History] Lisinopril [Zestril] 40 mg PO DAILY 10/13/16 [History] Metformin HCl [Glucophage] 1,000 mg PO BID 10/13/16 [History] Pioglitazone HCl [Actos] 30 mg PO HS 10/13/16 [History] Simvastatin [Zocor] 40 mg PO DAILY 10/13/16 [History] hydroCHLOROthiazide [Hydrochlorothiazide] 25 mg PO DAILY 10/13/16 [History] Allergy/AdvReac Type Severity Reaction Status Date / Time chocolate flavor Allergy Rash Verified 10/16/18 02:53 Review of Systems - Constitutional chills, fever(s) - EENT Nose, mouth and throat: no dizziness - Cardiovascular no chest pain - Respiratory no dyspnea - Gastrointestinal no nausea, no vomiting - Genitourinary difficulty urinating, flank pain, no hematuria - Musculoskeletal no back pain - Integumentary no erythema, no rash - Neurological no weakness - Psychiatric no suicidal ideation - Hematologic/Lymphatic no easy bleeding - Allergic/Immunologic no wheezing Exam Initial Vital Signs Temp Pulse Resp BP Pulse Ox 100.2 F H 88 18 137/64 96 11/04/18 22:22 11/04/18 22:22 11/04/18 22:22 11/04/18 22:22 11/04/18 22:22 - General physical appearance Present: well developed, well nourished, no distress - Eyes Absent: icteric - ENT Present: normal nares - Neck Present: trachea midline - Respiratory Present: normal respiratory effort - Cardiovascular Cardiovascular exam IM: RRR - Abdomen Abdomen: Present: soft, non tender - Integumentary Present: no rash - Neurologic Present: normal coordination - Musculoskeletal Present: other (No edema) Urology Results - Labs 11/05/18 04:57 11/05/18 04:57 Abnormal lab results WBC 16.4 K/mcL (4.3-11.1) H 11/05/18 04:57 RBC 3.63 M/mcL (4.19-5.50) L 11/05/18 04:57 Hgb 10.9 g/dL (12.9-16.9) L 11/05/18 04:57 Hct 33.6 % (37.5-50.1) L 11/05/18 04:57 RDW 15.1 % (11.5-14.5) H 11/05/18 04:57 Neutrophils # 12.8 K/mcL (1.6-8.9) H 11/05/18 04:57 Monocytes # 1.6 K/mcL (0.0-1.3) H 11/05/18 04:57 Sodium 135 mEq/L (136-145) L 11/04/18 22:47 Carbon Dioxide 21 mEq/L (23-29) L 11/05/18 04:57 BUN 54 mg/dL (8-23) H 11/05/18 04:57 Creatinine 2.19 mg/dL (0.70-1.30) H 11/05/18 04:57 Est GFR ( Amer) 35 (> 60) L 11/05/18 04:57 Est GFR (Non-Af Amer) 29 (> 60) L 11/05/18 04:57 Glucose 28 mg/dL (70-105) L* 11/05/18 04:57 Calcium 8.4 mg/dL (8.6-10.3) L 11/04/18 22:47 Albumin 3.3 g/dL (3.5-5.7) L 11/04/18 22:47 Albumin/Globulin Ratio 1.0 (1.1-2.2) L 11/04/18 22:47 Urine Clarity Cloudy (Clear) A 11/05/18 00:35 Urine Protein 100 mg/dL (Neg-Trace) H 11/05/18 00:35 Urine Blood Moderate (Negative) H 11/05/18 00:35 Urine Nitrite Positive (Negative) A 11/05/18 00:35 Ur Leukocyte Esterase Moderate (Negative) H 11/05/18 00:35 Urine Microscopic RBC 5-15 per hpf (0-3) H 11/05/18 00:35 Urine Microscopic WBC 50-100 per hpf (0-3) H 11/05/18 00:35 Ur Squamous Epith Cells Many per lpf (None-Few) H 11/05/18 00:35 Urine Bacteria Many per hpf (None-Few) H 11/05/18 00:35 Ur Culture Indicated? YES (NO) A 11/05/18 00:35 Diabetes panel 11/04/18 11/05/18 Range/Units 22:47 04:57 Sodium 135 L 138 (136-145) mEq/L Potassium 3.8 4.1 (3.5-5.1) mEq/L Chloride 102 103 (98-107) mEq/L Carbon Dioxide 21 L 21 L (23-29) mEq/L BUN 56 H 54 H (8-23) mg/dL Creatinine 2.51 H 2.19 H (0.70-1.30) mg/dL Glucose 42 L 28 L* (70-105) mg/dL Calcium 8.4 L 8.6 (8.6-10.3) mg/dL AST 32 (13-39) Units/L ALT 21 (7-52) Units/L Alkaline Phosphatase 62 (34-104) Units/L Albumin 3.3 L (3.5-5.7) g/dL Calcium panel 11/04/18 11/05/18 Range/Units 22:47 04:57 Calcium 8.4 L 8.6 (8.6-10.3) mg/dL Albumin 3.3 L (3.5-5.7) g/dL Pituitary panel 11/04/18 11/05/18 Range/Units 22:47 04:57 Sodium 135 L 138 (136-145) mEq/L Potassium 3.8 4.1 (3.5-5.1) mEq/L Chloride 102 103 (98-107) mEq/L Carbon Dioxide 21 L 21 L (23-29) mEq/L BUN 56 H 54 H (8-23) mg/dL Creatinine 2.51 H 2.19 H (0.70-1.30) mg/dL Glucose 42 L 28 L* (70-105) mg/dL Calcium 8.4 L 8.6 (8.6-10.3) mg/dL Adrenal panel 11/04/18 11/05/18 Range/Units 22:47 04:57 Sodium 135 L 138 (136-145) mEq/L Potassium 3.8 4.1 (3.5-5.1) mEq/L Chloride 102 103 (98-107) mEq/L Carbon Dioxide 21 L 21 L (23-29) mEq/L BUN 56 H 54 H (8-23) mg/dL Creatinine 2.51 H 2.19 H (0.70-1.30) mg/dL Glucose 42 L 28 L* (70-105) mg/dL Calcium 8.4 L 8.6 (8.6-10.3) mg/dL Total Bilirubin 0.4 (0.3-1.0) mg/dL AST 32 (13-39) Units/L ALT 21 (7-52) Units/L Alkaline Phosphatase 62 (34-104) Units/L Albumin 3.3 L (3.5-5.7) g/dL All other labs normal. - Imaging CT scan - abdomen: report reviewed, image reviewed CT scan - pelvis: report reviewed, image reviewed Consult Discharge Plan - Plan Referrals: Ray Culver MD [Primary Care Provider] -
[2018-11-05] MEDS: 0.9 % Sodium Chloride 1,000 ML IVC SCH ×2 (10:27→18:52)
[2018-11-05 13:46] LABS: Estimated Average Glucose 140 mg/dl
[2018-11-05 14:36] LABS: Acinetobacter baumannii by PCR Not Detected (Not Detect); Enterococcus by PCR Not Detected (Not Detect); Staphylococcus aureus by PCR Not Detected (Not Detect); Staphylococcus by PCR Not Detected (Not Detect); Streptococcus agalactiae(B)PCR Not Detected (Not Detect); Streptococcus by PCR Not Detected (Not Detect); Streptococcus pneumoniae PCR Not Detected (Not Detect); Streptococcus pyogenes (A) PCR Not Detected (Not Detect); blaKPC Carbapenem-Resist Gene Not Detected (Not Detect)
[2018-11-05 14:37] LABS: Candida albicans by PCR Not Detected (Not Detect); Candida glabrata by PCR Not Detected (Not Detect); Candida krusei by PCR Not Detected (Not Detect); Candida parapsilosis by PCR Not Detected (Not Detect); Candida tropicalis by PCR Not Detected (Not Detect); Enterobacter cloacae Cmplx PCR Not Detected (Not Detect); Escherichia coli by PCR DETECTED (Not Detect); Klebsiella oxytoca by PCR Not Detected (Not Detect); Klebsiella pneumoniae by PCR Not Detected (Not Detect); Proteus by PCR Not Detected (Not Detect); Pseudomonas aeruginosa by PCR Not Detected (Not Detect); Serratia marcescens by PCR Not Detected (Not Detect)
--- NOTE | 2018-11-06 00:45 | Electrocardiograph Report ---
[facility] Test Date: 2018-11-04 Pat Name: Alejandro Horton Department: [id number] Room: 3A62 Gender: M [employer]: : 1940 Requested By: Zay Peñaloza Order Number: [id number] Reading MD: Bell Rice Measurements Intervals Emerson Rate: 89 P: 56 NH: 140 QRS: -51 QRSD: 102 T: 41 QT: 337 QTc: 410 Interpretive Statements Sinus rhythm LAD, consider left anterior fascicular block Abnormal R-wave progression, late transition Electronically Signed On 11-06-2018 0:43:53 EDT by Bell Rice
[2018-11-06 02:28] LABS: Calcium 7.6 mg/dL (8.6-10.3); Potassium 4.3 mEq/L (3.5-5.1)
[2018-11-06 02:45] LABS: Basophils % 0.4 %; Eosinophils # 0.1 K/mcL (0.0-0.6); Eosinophils % 1.3 %; Hematocrit 31.3 % (37.5-50.1); Hemoglobin 9.9 g/dL (12.9-16.9); Immature Granulocytes % 1.1 % (0-4); Lymphocytes # 1.2 K/mcL (0.6-4.6); Lymphocytes % 13.9 %; Mean Corpuscular HGB Conc 31.6 g/dL (31.6-35.5); Mean Corpuscular Hemoglobin 30.6 pg (28.0-33.3); Mean Corpuscular Volume 96.6 fL (83.0-100.0); Monocytes % 12.3 %; Neutrophils # 5.9 K/mcL (1.6-8.9); Platelet Count 250 K/mcL (140-400); Red Blood Count 3.24 M/mcL (4.19-5.50); Red Cell Distribution Width 15.3 % (11.5-14.5); White Blood Count 8.3 K/mcL (4.3-11.1)
[2018-11-06] MEDS: 0.9 % Sodium Chloride 1,000 ML IVC SCH ×3 (03:05→20:29)
[2018-11-06] MEDS: *HR* Heparin 5,000 UNIT/ML VIAL SQ SCH ×2 (05:30→17:30)
--- NOTE | 2018-11-06 07:25 | Internal Med Progress Note ---
<Saúl Torres - Last Filed: 11/06/18 14:11> Hospitalist Progress Note - Encounter Date of Encounter: 11/06/18 Time of Encounter: 09:45 - Subjective Interval History: Patient seen and examined. Afebrile. No overnight events. Reports feeling well this morning. Glucose has been stable. Patient denies headache, fever, chills, chest pain, shortness of breath abdominal pain, constipation, diarrhea, change in urination. - Exam Vitals: Temp Pulse Resp BP Pulse Ox 99.9 F H 81 16 121/66 94 11/06/18 03:12 11/06/18 03:12 11/06/18 03:12 11/06/18 03:12 11/06/18 03:12 Exam: Gen: Vitals noted. No acute distress. Lying comfortably in bed Eyes: anicteric sclerae, moist conjunctivae, Pupils equal, round, and reactive to light HENT: Atraumatic, normocephalic; oropharynx clear with moist mucous membranes and no mucosal ulcerations Neck: Trachea midline; supple, no thyromegaly or lymphadenopathy Cardiac: RRR, no murmurs, rubs or gallops, S1/S2 Pulmonary: CTA bilaterally, no wheezes, rales or rhonchi, equal chest expansion Abdomen: soft, nontender, no rigidity or guarding. No masses or hepatosplenomegaly MSK: ROM intact, no joint swelling noted Extremities: no BLE edema, nontender calf, no cyanosis or clubbing Skin: Normal temperature, turgor and texture; no rash, ulcers or subcutaneous nodules Neuro: moves all extremities, no focal deficits. Psych: Appropriate mood and behavior. A&Ox3 - Assessment and Plan (1) Pyelonephritis Current Visit: Yes Status: Acute Assessment and Plan: Recent Diagnosis of obstructive kidney stone - Low grade fever, 100.2, and leukocytosis 15.3 on admission - CT ab/pel: acute evidence of left-sided pyelonephritis: perinephric fat stranding. No obstructing calculus - Blood cultures: Gram negative rods rods - urine cultures: Gram negative rods - UA: cloudy, positve nitrite and leuk esterase Plan: - IV fluid hydration - Rocephin 1g daily, day 2 (2) Hypoglycemia Current Visit: Yes Status: Acute Assessment and Plan: Patient presented with hypoglycemia. - Hx of type 2 diabetes - Blood sugar of 49 at home by EMS, oral glucose given - No PO intake for 2 days, continued home Diabetes medications - N/V before admission - Improving, tolerating diet well. Glucose has been elevated, but stable Plan: - Continue to monitor glucose - Advance diet as tolerated (3) KANDIS (acute kidney injury) Current Visit: Yes Status: Acute Assessment and Plan: Acute kidney injury - Dark urine on admission - Creatinine and GFR improving Plan: - IV fluid hydration - Continue to monitor (4) Hypertension Current Visit: Yes Status: Chronic Assessment and Plan: Hx of hypertension - BPs stable - Holding home lisinopril because of KANDIS (5) Type 2 diabetes mellitus Current Visit: Yes Status: Chronic Assessment and Plan: Hx of DM type II Plan: - Holding home meds - Sliding scale insulin - Continue to monitor - Diabetic diet DVT Prophylaxis: Sub Q heparin - Time Spent with Patient Total time spent is greater than 50% in coordination of care (as documented) at patient's floor/unit and/or counseling patient: Internal Medicine: Result - Labs CBC & Chem 7: 11/06/18 02:35 11/06/18 01:32 Labs: Short CBC 11/06/18 Range/Units 02:35 WBC 8.3 (4.3-11.1) K/mcL Hgb 9.9 L (12.9-16.9) g/dL Hct 31.3 L (37.5-50.1) % Plt Count 250 (140-400) K/mcL Neutrophils # 5.9 (1.6-8.9) K/mcL BMP 11/05/18 11/06/18 04:57 01:32 Sodium 138 136 Potassium 4.1 4.3 Chloride 103 109 H Carbon Dioxide 21 L 18 L BUN 54 H 38 H Creatinine 2.19 H 1.47 H Glucose 28 L* 165 H Calcium 8.6 7.6 L Consult Discharge Plan - Plan Referrals: Ray Culver MD [Primary Care Provider] - <Kathrine Alejandra - Last Filed: 11/06/18 14:16> Hospitalist Progress Note - Encounter Date of Encounter: 11/06/18 - Exam Vitals: Temp Pulse Resp BP Pulse Ox 98.6 F 77 14 121/72 95 11/06/18 12:12 11/06/18 12:12 11/06/18 12:12 11/06/18 12:12 11/06/18 12:12 - Time Spent with Patient Total time spent is greater than 50% in coordination of care (as documented) at patient's floor/unit and/or counseling patient: Internal Medicine: Result - Labs CBC & Chem 7: 11/06/18 02:35 11/06/18 01:32 Labs: Short CBC 11/06/18 Range/Units 02:35 WBC 8.3 (4.3-11.1) K/mcL Hgb 9.9 L (12.9-16.9) g/dL Hct 31.3 L (37.5-50.1) % Plt Count 250 (140-400) K/mcL Neutrophils # 5.9 (1.6-8.9) K/mcL BMP 11/06/18 01:32 Sodium 136 Potassium 4.3 Chloride 109 H Carbon Dioxide 18 L BUN 38 H Creatinine 1.47 H Glucose 165 H Calcium 7.6 L - Attending Attestation I have seen and independently assessed this patient and I agree with plan as documented Plan Sepsis with e.coli pyelonpehritis. On ceftriaxone. Await urine cultures. IV fluids Hypoglycemia 2/2 to oral hypoglycemics. D50 as needed. continue diabetic diet <Brian,Saúl L - Last Filed: 11/06/18 14:11> (4) Hypertension Qualifiers: Hypertension type: essential hypertension Qualified Code(s): I10 - Essential (primary) hypertension (5) Type 2 diabetes mellitus Qualifiers: Diabetes mellitus mcc insulin use: without manager terminal use Diabetes mellitus complication status: with hypoglycemia Diabetes mellitus complication detail: without coma Qualified Code(s): E11.649 - Type 2 diabetes mellitus with hypoglycemia without coma
[2018-11-06] MEDS: Aspirin 81 MG TAB.CHEW PO SCH (09:01)
[2018-11-06] MEDS: cefTRIAXone 2,000 MG in Water for inj. (sterile) 20 ML IVPB SCH (09:01)
[2018-11-06] MEDS: Insulin LISPRO 300 UNITS/3 ML VIAL SQ SCH ×4 (09:05→20:42)
--- NOTE | 2018-11-06 09:14 | Urology Progress Note ---
Date of Encounter: 11/06/18 Time of Encounter: 09:11 - Assessment and Plan (1) Pyelonephritis Current Visit: Yes Status: Acute Assessment and plan: 78-year-old man with a history of pyelonephritis after passing a left ureteral stone. His renal function is improving. He had low-grade temperatures. Urine culture is positive for gram-negative rods. 1. Continue IV antibiotic and await for urine culture results. 2. Renal function is improving. His CT showed that he has passed a stone. I will continue to follow him clinically. If he continues to spike fevers despite being on a culture appropriate antibiotic, it may be reasonable to repeat imaging such as a renal ultrasound to see if the hydronephrosis has resolved. At this point we are holding off on intervention such as stent placement. Urology will continue to follow along. (2) Hydronephrosis Current Visit: Yes Status: Acute Qualifiers: Hydronephrosis type: with ureteral calculous obstruction Qualified Code(s): N13.2 - Hydronephrosis with renal and ureteral calculous obstruction Progress Note Narrative: Patient doing well this morning. Low-grade temperatures were again noted overnight. Urine culture is growing out gram-negative rods as well as gram- negative rods being seen in the blood cultures. He is tolerating diet. Renal function is improving. Objective Initial Vital Signs Temp Pulse Resp BP Pulse Ox 100.2 F H 88 18 137/64 96 11/04/18 22:22 11/04/18 22:22 11/04/18 22:22 11/04/18 22:22 11/04/18 22:22 - General physical appearance Present: well developed, well nourished, no distress - Respiratory Present: normal respiratory effort - Labs 11/06/18 02:35 11/06/18 01:32 Diabetes panel 11/05/18 11/06/18 Range/Units 09:54 01:32 Sodium 136 (136-145) mEq/L Potassium 4.3 (3.5-5.1) mEq/L Chloride 109 H (98-107) mEq/L Carbon Dioxide 18 L (23-29) mEq/L BUN 38 H (8-23) mg/dL Creatinine 1.47 H (0.70-1.30) mg/dL Glucose 165 H (70-105) mg/dL Hemoglobin A1c 6.5 H ( - 5.6) % Calcium 7.6 L (8.6-10.3) mg/dL Calcium panel 11/06/18 Range/Units 01:32 Calcium 7.6 L (8.6-10.3) mg/dL Pituitary panel 11/06/18 Range/Units 01:32 Sodium 136 (136-145) mEq/L Potassium 4.3 (3.5-5.1) mEq/L Chloride 109 H (98-107) mEq/L Carbon Dioxide 18 L (23-29) mEq/L BUN 38 H (8-23) mg/dL Creatinine 1.47 H (0.70-1.30) mg/dL Glucose 165 H (70-105) mg/dL Calcium 7.6 L (8.6-10.3) mg/dL Adrenal panel 11/06/18 Range/Units 01:32 Sodium 136 (136-145) mEq/L Potassium 4.3 (3.5-5.1) mEq/L Chloride 109 H (98-107) mEq/L Carbon Dioxide 18 L (23-29) mEq/L BUN 38 H (8-23) mg/dL Creatinine 1.47 H (0.70-1.30) mg/dL Glucose 165 H (70-105) mg/dL Calcium 7.6 L (8.6-10.3) mg/dL Consult Discharge Plan - Plan Referrals: Ray Culver MD [Primary Care Provider] -
--- NOTE | 2018-11-06 12:57 | Discharge Summary ---
<Saúl Torres L - Last Filed: 11/06/18 13:11> - NOTES TO OUTPATIENT PROVIDER Notes to Outpatient Provider: Pt treated for acute pyelonephritis following passage of a left ureteral stone. No obstructing calculus noted on CT ab/pel. Pt discharged on antibiotics of E. coli pyelonephritis. Orders not resulted at time of discharge: Pending orders 11/04/18 22:47 Culture,Blood [BC] Stat 11/04/18 23:16 POC Glucometer Test [POC] Stat 11/05/18 00:35 Culture,Urine [RM] Stat 11/05/18 16:26 Culture,Blood [BC] Routine 11/07/18 04:00 BMP [Basic Metabolic Panel] AM 0400 CBC no Diff [Complete Blood Count w/o Diff] [HEME] AM 0400 Date of Encounter: 11/06/18 Time of Encounter: 12:55 - Discharge Diagnosis (1) Pyelonephritis Priority: Primary Status: Acute (2) Hypoglycemia Priority: Secondary Status: Acute (3) KANDIS (acute kidney injury) Priority: Secondary Status: Acute (4) Hypertension Priority: Secondary Status: Chronic Qualifiers: Hypertension type: essential hypertension Qualified Code(s): I10 - Essential (primary) hypertension (5) Type 2 diabetes mellitus Priority: Secondary Status: Chronic Qualifiers: Diabetes mellitus intermediate insulin use: without intermediate use Diabetes mellitus complication status: with hypoglycemia Diabetes mellitus complication detail: without coma Qualified Code(s): E11.649 - Type 2 diabetes mellitus with hypoglycemia without coma Hospital course: Mr. Horton is a 78 year old male with a past medical history of hypertension and diabetes who presented to the emergency room feeling unwell for a few days and hypoglycemia. He had not eaten much food or drank many fluids for 2 days prior to admission because of nausea and vomiting. He also reported generalized malaise and abdominal pain. He continued to take his diabetic medications despite decreased oral intake. He reported being diagnosed with an obstructive kidney stone about 2 weeks ago and was to undergo expectant observation for management. He presented with a low-grade fever and elevated serum creatinine. Cloudy urine with nitrites and leukocyte esterase was noted on UA. CT scan of the abdomen and pelvis showed inflammatory changes involving the left kidney and an area of very nephritic fat stranding with slight dilation of the left renal collecting system with no evidence of obstructing calculus suggesting recent passage of a calculus. He was treated with IV fluids and empiric antibiotics, and admitted for additional care. During his first night, he was hypoglycemic, at around 7 AM on 11/05/18 his glucose was 28. At that time he was somnolent and groggy. Treated with oral and IV glucose solutions and his blood glucose and mental status improved quickly. Glucose has been stable since then. Blood cultures have grown Escherichia coli, urine cultures are growing gram-negative nawaf at time of discharge. Repeat blood cultures are pending with no growth to date at time of discharge. Treated for pyelonephritis, hypoglycemia, and acute kidney injury. He will be discharged on oral antibiotics to complete a seven- day course for pyelonephritis. Abdominal pain had resolved and patient's appetite had returned prior to discharge. - Time Spent with Patient Total time spent providing and/or coordinating discharge services: - Discharge Medications Prescriptions: Continued hydroCHLOROthiazide [Hydrochlorothiazide] 25 mg PO DAILY Aspirin 81 mg PO DAILY Simvastatin [Zocor] 40 mg PO DAILY Pioglitazone HCl [Actos] 30 mg PO HS Metformin HCl [Glucophage] 1,000 mg PO BID Lisinopril [Zestril] 40 mg PO DAILY GlipiZIDE XL (24 HR) [Glucotrol XL] 10 mg PO BID Home Medications: Aspirin 81 mg PO DAILY 10/13/16 [History] GlipiZIDE XL (24 HR) [Glucotrol XL] 10 mg PO BID 10/13/16 [History] Lisinopril [Zestril] 40 mg PO DAILY 10/13/16 [History] Metformin HCl [Glucophage] 1,000 mg PO BID 10/13/16 [History] Pioglitazone HCl [Actos] 30 mg PO HS 10/13/16 [History] Simvastatin [Zocor] 40 mg PO DAILY 10/13/16 [History] hydroCHLOROthiazide [Hydrochlorothiazide] 25 mg PO DAILY 10/13/16 [History] Allergies/Adverse Reactions: Allergy/AdvReac Type Severity Reaction Status Date / Time chocolate flavor Allergy Rash Verified 11/06/18 16:18 Date of admission: 11/05/18 01:39 Primary care physician: Ray Culver MD Consults: 11/05/18 08:18 Consult to Urology [CONS] Routine Consulting Provider: [facility] Reason for Consult: hydronephrosis with recent calculus on CT scan Call Completed: No Discharging clinician: Saúl Torres Anticipated date of discharge: 11/06/18 - Constitutional Vitals: Temp Pulse Resp BP Pulse Ox 98.6 F 77 14 121/72 95 11/06/18 12:12 11/06/18 12:12 11/06/18 12:12 11/06/18 12:12 11/06/18 12:12 Exam: Gen: Vitals noted. No acute distress. Lying comfortably in bed Eyes: anicteric sclerae, moist conjunctivae, Pupils equal, round, and reactive to light HENT: Atraumatic, normocephalic; oropharynx clear with moist mucous membranes and no mucosal ulcerations Neck: Trachea midline; supple, no thyromegaly or lymphadenopathy Cardiac: RRR, no murmurs, rubs or gallops, S1/S2 Pulmonary: CTA bilaterally, no wheezes, rales or rhonchi, equal chest expansion Abdomen: soft, nontender, no rigidity or guarding. No masses or hepatosplenomegaly MSK: ROM intact, no joint swelling noted Extremities: no BLE edema, nontender calf, no cyanosis or clubbing Skin: Normal temperature, turgor and texture; no rash, ulcers or subcutaneous nodules Neuro: moves all extremities, no focal deficits. Psych: Appropriate mood and behavior. A&Ox3 - Patient Status Condition: Fair - Discharge Instructions Follow Up With: Ray Culver MD [Primary Care Provider] - <Kathrine Alejandra - Last Filed: 11/07/18 13:44> Orders not resulted at time of discharge: Pending orders 11/04/18 22:47 Culture,Blood [BC] Stat 11/05/18 00:35 Culture,Urine [RM] Stat 11/05/18 16:26 Culture,Blood [BC] Routine Date of Encounter: 11/07/18 Hospital course: Mr. Horton is a 78 year old male - Time Spent with Patient Total time spent providing and/or coordinating discharge services: Date of admission: 11/05/18 01:39 Primary care physician: Ray Culver MD Consults: 11/05/18 08:18 Consult to Urology [CONS] Routine Consulting Provider: [facility] Reason for Consult: hydronephrosis with recent calculus on CT scan Call Completed: No 11/07/18 13:10 Consult to Infectious Diseases [CONS] Routine Consulting Provider: Infectious [facility] Reason for Consult: E. coli bacteremia. E. coli and Gram positive urine. Call Completed: No - Constitutional Vitals: Temp Pulse Resp BP Pulse Ox 98.3 F 58 18 107/58 96 11/07/18 10:50 11/07/18 10:50 11/07/18 10:50 11/07/18 10:50 11/07/18 10:50 - Attending Attestation I have seen and independently assessed this patient and I agree with plan as documented Exam Gen. NAD CVS. S1 S2 WNL Resp. CTAB GI. SOft, NT, ND, +BS Ext. 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 GCS 15/15 Plan Sepsis with e.coli pyelonpehritis. On ceftriaxone. Await urine cultures. IV fluids Hypoglycemia 2/2 to oral hypoglycemics. D50 as needed. continue diabetic diet
[2018-11-07] MEDS: *HR* Heparin 5,000 UNIT/ML VIAL SQ SCH ×2 (04:46→17:29)
[2018-11-07] MEDS: 0.9 % Sodium Chloride 1,000 ML IVC SCH ×2 (04:46→11:35)
[2018-11-07 06:59] LABS: Basophils # 0.1 K/mcL (0.0-0.2); Basophils % 0.8 %; Eosinophils # 0.2 K/mcL (0.0-0.6); Hemoglobin 9.8 g/dL (12.9-16.9); Immature Granulocytes % 2.6 % (0-4); Lymphocytes # 1.5 K/mcL (0.6-4.6); Mean Corpuscular HGB Conc 31.6 g/dL (31.6-35.5); Mean Corpuscular Hemoglobin 30.2 pg (28.0-33.3); Mean Corpuscular Volume 95.4 fL (83.0-100.0); Mean Platelet Volume 9.7 fL (9.4-12.4); Monocytes # 0.8 K/mcL (0.0-1.3); Monocytes % 11.8 %; Neutrophils # 3.9 K/mcL (1.6-8.9); Platelet Count 258 K/mcL (140-400); Red Blood Count 3.25 M/mcL (4.19-5.50); Red Cell Distribution Width 15.3 % (11.5-14.5); Segmented Neutrophils % 59.8 %; White Blood Count 6.6 K/mcL (4.3-11.1)
[2018-11-07 07:19] LABS: BUN/Creatinine Ratio 21 (6-26); Blood Urea Nitrogen 25 mg/dL (8-23); Calcium 7.9 mg/dL (8.6-10.3); Carbon Dioxide 22 mEq/L (23-29); Chloride 110 mEq/L (98-107); Glucose 137 mg/dL (70-105); Osmolality,Calculated 301 (280-300); Sodium 142 mEq/L (136-145); eGFR For African Americans > 60 (> 60); eGFR For Non-African Americans 59 (> 60)
[2018-11-07] MEDS: Insulin LISPRO 300 UNITS/3 ML VIAL SQ SCH ×3 (07:43→17:03)
[2018-11-07] MEDS: Aspirin 81 MG TAB.CHEW PO SCH (07:43)
[2018-11-07] MEDS: cefTRIAXone 2,000 MG in Water for inj. (sterile) 20 ML IVPB SCH (07:44)
--- NOTE | 2018-11-07 07:45 | Urology Progress Note ---
Date of Encounter: 11/07/18 Time of Encounter: 07:44 - Assessment and Plan (1) Pyelonephritis Current Visit: Yes Status: Acute Assessment and plan: Infection is improving today. Await final urine culture results. No need for urologic intervention at this time. (2) Hydronephrosis Current Visit: Yes Status: Acute Qualifiers: Hydronephrosis type: with ureteral calculous obstruction Qualified Code(s): N13.2 - Hydronephrosis with renal and ureteral calculous obstruction Progress Note Narrative: Doing better today. He was afebrile overnight. Blood cultures are growing out Escherichia coli. His leukocytosis has resolved. He is voiding well. He denies any flank pain. Objective Initial Vital Signs Temp Pulse Resp BP Pulse Ox 100.2 F H 88 18 137/64 96 11/04/18 22:22 11/04/18 22:22 11/04/18 22:22 11/04/18 22:22 11/04/18 22:22 - General physical appearance Present: well developed, well nourished, no distress - Respiratory Present: normal respiratory effort - Abdomen Present: soft - Integumentary Present: no rash - Labs 11/07/18 06:44 11/07/18 06:44 Diabetes panel 11/07/18 Range/Units 06:44 Sodium 142 (136-145) mEq/L Potassium 4.0 (3.5-5.1) mEq/L Chloride 110 H (98-107) mEq/L Carbon Dioxide 22 L (23-29) mEq/L BUN 25 H (8-23) mg/dL Creatinine 1.20 (0.70-1.30) mg/dL Glucose 137 H (70-105) mg/dL Calcium 7.9 L (8.6-10.3) mg/dL Calcium panel 11/07/18 Range/Units 06:44 Calcium 7.9 L (8.6-10.3) mg/dL Pituitary panel 11/07/18 Range/Units 06:44 Sodium 142 (136-145) mEq/L Potassium 4.0 (3.5-5.1) mEq/L Chloride 110 H (98-107) mEq/L Carbon Dioxide 22 L (23-29) mEq/L BUN 25 H (8-23) mg/dL Creatinine 1.20 (0.70-1.30) mg/dL Glucose 137 H (70-105) mg/dL Calcium 7.9 L (8.6-10.3) mg/dL Adrenal panel 11/07/18 Range/Units 06:44 Sodium 142 (136-145) mEq/L Potassium 4.0 (3.5-5.1) mEq/L Chloride 110 H (98-107) mEq/L Carbon Dioxide 22 L (23-29) mEq/L BUN 25 H (8-23) mg/dL Creatinine 1.20 (0.70-1.30) mg/dL Glucose 137 H (70-105) mg/dL Calcium 7.9 L (8.6-10.3) mg/dL Consult Discharge Plan - Plan Referrals: Ray Culver MD [Primary Care Provider] -
--- NOTE | 2018-11-07 14:49 | Infectious Disease Consult ---
Infectious Disease-Consult - Encounter Date/Time Date of Encounter: 11/07/18 Time of Encounter: 14:45 - Data of Consult Patient: new to practice Reason for consult: "E. coli bacteremia. E. coli and Gram positive urine." Consult date: 11/07/18 Requesting Physician: Bailey Field Primary Care Provider: Ray Culver MD - HPI HPI: Mr. Horton is a 78-year-old male with past medical history of diabetes, hyper tension, and kidney stones or pyelonephritis. The patient was admitted to the hospital 11/04/18 for hypoglycemia and UTI. We are consulted 11/07/18 for further workup and treatment recommendations for Escherichia coli bacteremia and pyelonephritis. Briefly, the patient is a 78-year-old male with past medical history as stated above. The patient presented to the emergency department with complaints of hypoglycemia, weakness, and nausea and vomiting. Upon arrival, he had a low- grade temp of 100.2. He was otherwise hemodynamically stable. He had leukocytosis with neutrophilic predominance and acute kidney injury. Chest x- ray was negative. Urinalysis was positive for moderate blood, positive nitrites, moderate leukocyte esterase, 50-100 white cells, many epithelial cells, and many bacteria. CT abdomen and pelvis showed acute inflammatory/edematous changes involving the left kidney. The left kidney was enlarged and there was perinephric and peripelvic fat stranding with slight dilatation of the left renal collecting system and ureter with no evidence of an obstructing radiopaque calculus. Recent passage of calculus was expected. Manifestation of infection is also consideration and clinical correlation is recommended. Blood cultures were obtained 2 sets. He was started empirically on IV Rocephin and admitted to the hospital for further evaluation. Since admission, the patient's has been afebrile. His leukocytosis has resolved. He was evaluated by urology who did not recommend any surgical intervention. His acute kidney injury is improved. Blood cultures obtained in the emergency department a positive one out of 2 sets for Escherichia coli that is pansensitive. Urine cultures positive for Escherichia coli and an unidentified GPC. Repeat blood cultures on 11/05/18 are no growth to date 2 sets. Currently, the patient is on IV Rocephin. We have asked to evaluate and make further recommendations. During my exam today, the patient states that he was seen in the ED two weeks ago and advised he had a kidney stone. His urine culture was positive for "mixed organisms resembling possible pathogens." He had a CT that showed an obstructing 2mm left mid ureteral stone with mild upstream hydroureteronephrosis and moderate to severe periureteral/perinpehric inflammatory stranding with fluid. He was discharged home on PO Keflex x 7 days. Two days ago, he developed fatigue, malaise, and fevers and poor PO intake. His states he had a fever on Wednesday. Denies chills or rigors. Denies headache or neck pain. Denies chest pain, shortness of breath, or cough. Reports nausea with vomiting and poor appetite. Denies abdominal pain or flank pain. Denies diarrhea or constipation. Denies dyruria or hematuria, but states he felt like he was having difficulty emptying his bladder all the way. Denies oral thrush or skin rashes. The patient lives at home with his and grandson. 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 Denies tobacco, alcohol, or illicit drug use. Last traveled to [facility] in September. Denies chronic infectious diseases. - ROS Review of Systems: All systems reviewed and no additional remarkable complaints except as stated. - Results CBC & Chem 7: 11/07/18 06:44 11/07/18 06:44 - Exam Vitals: Temp Pulse Resp BP Pulse Ox 98.3 F 58 18 107/58 96 11/07/18 10:50 11/07/18 10:50 11/07/18 10:50 11/07/18 10:50 11/07/18 10:50 Exam: Head: Atraumatic, normal inspection, normocephalic. Eye: EOMI, PERRLA, no scleral icterus noted. ENT: Mucous membranes moist. No odontogenic infection noted. Neck: Normal inspection, no meningismus. Respiratory: Clear to auscultation. No rales, respiratory distress, rhonchi, or wheezes noted. Cardiovascular: Regular rate and rhythm, S1 and S2 audible. No murmurs, rubs, or gallops. GI: Soft, obese, normal bowel sounds.Non-tender. Extremities:No joint swelling, pedal edema, or tenderness noted. Back: Normal inspection. No vertebral tenderness noted. No CVAT noted. Neurological: Alert, oriented 3, no focal deficits. Psychiatric: normal affect, normal mood. Skin: Dry, intact, warm. Normal color. No rashes. Aspirin 81 mg PO DAILY 10/13/16 [History] GlipiZIDE XL (24 HR) [Glucotrol XL] 10 mg PO BID 10/13/16 [History] Lisinopril [Zestril] 40 mg PO DAILY 10/13/16 [History] Metformin HCl [Glucophage] 1,000 mg PO BID 10/13/16 [History] Pioglitazone HCl [Actos] 30 mg PO HS 10/13/16 [History] Simvastatin [Zocor] 40 mg PO DAILY 10/13/16 [History] hydroCHLOROthiazide [Hydrochlorothiazide] 25 mg PO DAILY 10/13/16 [History] Amoxicillin/Clavulanate [Augmentin] 875 mg PO BIDWM 11 Days #22 tablet 11/07/18 [Rx] Allergy/AdvReac Type Severity Reaction Status Date / Time chocolate flavor Allergy Rash Verified 11/06/18 16:18 - Assessment and Plan (1) Sepsis Status: Acute Severe sepsis: The patient had 2 sepsis criteria plus acute kidney injury on admission. Likely secondary to bacteremia and pyelonephritis. Improved. Afebrile. Leukocytosis resolved. Blood cultures on 11/04/18 are +1 out of 2 sets for Escherichia coli. Repeat blood cultures on 11/05/18 are no growth to date 2 sets. SNOMED Code(s): 00470049 (2) Bacteremia Status: Acute Causative organism: Escherichia coli. Blood cultures on 11/04/18 are +1 out of 2 sets for Escherichia coli. Repeat blood cultures on 11/05/18 are no growth to date 2 sets. Source: Pyelonephritis. Currently on IV Rocephin. SNOMED Code(s): 9692910 (3) Pyelonephritis Status: Acute Causative organism: Escherichia coli and GPC (final ID and sensitivities pending). CT abdomen and pelvis shows acute inflammatory/edematous changes of the left kidney as well as enlargement of the left kidney with perinephric stranding. Pelvic fat stranding with slight dilatation of the renal collection system and ureter without evidence of obstructing calculus. Urology consulted. No surgical intervention planned at this time. Currently on Rocephin. SNOMED Code(s): 27640732 (4) Hydronephrosis Status: Acute Slight dilatation of the left renal collection system and ureter noted on CT abdomen and pelvis. Likely secondary to recent passage of calculus. Urology consult. Since the patient is clinically improving, no surgical intervention planned at this time. Qualifiers: Hydronephrosis type: with ureteral calculous obstruction Qualified Code(s): N13.2 - Hydronephrosis with renal and ureteral calculous obstruction SNOMED Code(s): 13449885 (5) KANDIS (acute kidney injury) Status: Acute Likely secondary to sepsis and hydronephrosis. Improved. Continue to trend. Discussed medications and avoid nephrotoxins as able. SNOMED Code(s): 92406486, 25625434 (6) Hypoglycemia Status: Resolved Management per the primary team. SNOMED Code(s): 765304062 (7) Hypertension Status: Chronic Qualifiers: Hypertension type: essential hypertension Qualified Code(s): I10 - Essential (primary) hypertension SNOMED Code(s): 62807216 (8) Type 2 diabetes mellitus Status: Chronic Recommend aggressive glucose monitoring and control. Management per the primary team. Qualifiers: Diabetes mellitus alf insulin use: without alf use Diabetes mellitus complication status: with hypoglycemia Diabetes mellitus complication detail: without coma Qualified Code(s): E11.649 - Type 2 diabetes mellitus with hypoglycemia without coma SNOMED Code(s): 96820162 - Recommendations Recommendations: Await repeat blood cultures to finalize. Await urine culture to finalize. Discontinue Rocephin. Start Zosyn 3.375 grams IV Q8H. Duration of treatment depends on the clinical picture. Ideally, we would like to wait for final ID and sensitivities on the urine, but the patient is insistent on leaving tonight. If he refuses to stay, discharging on PO Augmentin 875mg BID to complete a 14 day course (through 11/18/18) is reasonable, but would recommend the primary team continue to follow the cultures and sensitivities to ensure appropriate antibiotic therapy. Monitor renal function and dose-adjust antibiotics. Past Med Surg Social Fam HX - Past Medical History Attestation: Yes The following information was validated with the patient. Source: patient, old records reviewed, nursing notes reviewed Medical history: diabetes, hypertension Psychiatric history: no psych history - Past Surgical History Surgical History: no surgical history - Social History Smoking Status: Former smoker Smokeless Tobacco Status: No Alcohol use: none Drug use: none - Family History Son Hx Family Genitourinary Disorders: Yes (Kidney stones) Consult Discharge Plan - Plan Referrals: Noreen Field MD [Partnered Physician] - (Follow-up in 5-7 days. Web request entered. Office will call with date and time of appointment.) Ray Culver MD [Primary Care Provider] - (Call your Primary Physician and schedule a follow-up. ) Prescriptions: Amoxicillin/Clavulanate [Augmentin] 875 mg PO BIDWM 11 Days #22 tablet - Attending Attestation I have personally performed a face to face evaluation on this patient. I have reviewed and agree with the care plan. History and Exam by me shows: This is an addendum to original report dictated by Ying Norton CNP. Please refer to Ying's note for full detail. Agree with above history of present illness review of system and physical exam findings. Assessment and plan: 1.Sepsis 2.Escherichia coli bacteremia likely sources pyelonephritis 3.Pyelonephritis with hydronephrosis of the left renal collection system 4.Acute kidney injury and 5.Diabetes mellitus type 2 Recommendations Patient clinically doing well and is insisting on going home. I think we are okay with the switching him to oral antibiotics including Augmentin 875 mg by mouth twice a day through 11/18/2018. Monitor labs and for drug toxicity. Advised patient to take probiotics. Discussed with the hospitalist team.
[2018-11-07 16:05] VITALS: BP 117/68
--- NOTE | 2018-11-07 16:19 | Internal Med Progress Note ---
<Saúl Torres L - Last Filed: 11/07/18 16:17> Hospitalist Progress Note - Encounter Date of Encounter: 11/07/18 Time of Encounter: 08:00 - Subjective Interval History: Patient seen and examined. No overnight events. Afebrile. Patient denies fever, chills, headache, chest pain, shortness of breath, abdominal pain, constipation, diarrhea, changes in urination. - Exam Vitals: Temp Pulse Resp BP Pulse Ox 98.5 F 64 16 117/68 96 11/07/18 14:21 11/07/18 14:21 11/07/18 14:21 11/07/18 14:21 11/07/18 14:21 Exam: Gen: Vitals noted. No acute distress. Sitting comfortably on edge of bed Eyes: anicteric sclerae, moist conjunctivae, Pupils equal, round, and reactive to light HENT: Atraumatic, normocephalic; oropharynx clear with moist mucous membranes and no mucosal ulcerations Neck: Trachea midline; supple, no thyromegaly or lymphadenopathy Cardiac: RRR, no murmurs, rubs or gallops, S1/S2 Pulmonary: CTA bilaterally, no wheezes, rales or rhonchi, equal chest expansion Abdomen: soft, nontender, no rigidity or guarding. No masses or hepatosplenomegaly MSK: ROM intact, no joint swelling noted Extremities: no BLE edema, nontender calf, no cyanosis or clubbing Skin: Normal temperature, turgor and texture; no rash, ulcers or subcutaneous nodules Neuro: moves all extremities, no focal deficits. Psych: Appropriate mood and behavior. A&Ox3 - Assessment and Plan (1) Pyelonephritis Current Visit: Yes Status: Acute Assessment and Plan: Recent Diagnosis of obstructive kidney stone - Low grade fever, 100.2, and leukocytosis 15.3 on admission - CT ab/pel: acute evidence of left-sided pyelonephritis: perinephric fat stranding. No obstructing calculus - Blood cultures: Gram negative rods rods - urine cultures: Gram negative rods - UA: cloudy, positve nitrite and leuk esterase Plan: - IV fluid hydration - Rocephin 1g daily, day 2 (2) Hypoglycemia Current Visit: Yes Status: Acute Assessment and Plan: Patient presented with hypoglycemia. - Hx of type 2 diabetes - Blood sugar of 49 at home by EMS, oral glucose given - No PO intake for 2 days, continued home Diabetes medications - N/V before admission - Improving, tolerating diet well. Glucose has been elevated, but stable Plan: - Continue to monitor glucose - Advance diet as tolerated (3) KANDIS (acute kidney injury) Current Visit: Yes Status: Acute Assessment and Plan: Acute kidney injury - Dark urine on admission - Creatinine and GFR improving Plan: - IV fluid hydration - Continue to monitor (4) Hypertension Current Visit: Yes Status: Chronic Assessment and Plan: Hx of hypertension - BPs stable - Holding home lisinopril because of KANDIS (5) Type 2 diabetes mellitus Current Visit: Yes Status: Chronic Assessment and Plan: Hx of DM type II Plan: - Holding home meds - Sliding scale insulin - Continue to monitor - Diabetic diet DVT Prophylaxis: Sub Q heparin - Time Spent with Patient Total time spent is greater than 50% in coordination of care (as documented) at patient's floor/unit and/or counseling patient: Internal Medicine: Result - Labs CBC & Chem 7: 11/07/18 06:44 11/07/18 06:44 Labs: Short CBC 11/07/18 Range/Units 06:44 WBC 6.6 (4.3-11.1) K/mcL Hgb 9.8 L (12.9-16.9) g/dL Hct 31.0 L (37.5-50.1) % Plt Count 258 (140-400) K/mcL Neutrophils # 3.9 (1.6-8.9) K/mcL BMP 11/07/18 06:44 Sodium 142 Potassium 4.0 Chloride 110 H Carbon Dioxide 22 L BUN 25 H Creatinine 1.20 Glucose 137 H Calcium 7.9 L Consult Discharge Plan - Plan Referrals: Ray Culver MD [Primary Care Provider] - <Kathrine Alejandra - Last Filed: 11/07/18 16:35> Hospitalist Progress Note - Encounter Date of Encounter: 11/07/18 - Exam Vitals: Temp Pulse Resp BP Pulse Ox 98.5 F 64 16 117/68 96 11/07/18 14:21 11/07/18 14:21 11/07/18 14:21 11/07/18 14:21 11/07/18 14:21 - Time Spent with Patient Total time spent is greater than 50% in coordination of care (as documented) at patient's floor/unit and/or counseling patient: Internal Medicine: Result - Labs CBC & Chem 7: 11/07/18 06:44 11/07/18 06:44 Labs: Short CBC 11/07/18 Range/Units 06:44 WBC 6.6 (4.3-11.1) K/mcL Hgb 9.8 L (12.9-16.9) g/dL Hct 31.0 L (37.5-50.1) % Plt Count 258 (140-400) K/mcL Neutrophils # 3.9 (1.6-8.9) K/mcL BMP 11/07/18 06:44 Sodium 142 Potassium 4.0 Chloride 110 H Carbon Dioxide 22 L BUN 25 H Creatinine 1.20 Glucose 137 H Calcium 7.9 L - Attending Attestation I have seen and independently assessed this patient and I agree with plan as documented Plan Sepsis with gram positive cocci and e.coli pyelonpehritis. On ceftriaxone. Await urine culture finalization. IV fluids Hypoglycemia 2/2 to oral hypoglycemics. D50 as needed. continue diabetic diet <Saúl Torres - Last Filed: 11/07/18 16:17> (4) Hypertension Qualifiers: Hypertension type: essential hypertension Qualified Code(s): I10 - Essential (primary) hypertension (5) Type 2 diabetes mellitus Qualifiers: Diabetes mellitus [employer] insulin use: without [employer] use Diabetes mellitus complication status: with hypoglycemia Diabetes mellitus complication detail: without coma Qualified Code(s): E11.649 - Type 2 diabetes mellitus with hypoglycemia without coma
--- NOTE | 2018-11-07 17:22 | Discharge Summary ---
<Saúl Torres L - Last Filed: 11/07/18 18:27> - NOTES TO OUTPATIENT PROVIDER Notes to Outpatient Provider: Pt treated for acute pyelonephritis following passage of a left ureteral stone. No obstructing calculus noted on CT ab/pel. Pt discharged on antibiotics of E. coli pyelonephritis. Blood cultures grew E. coli. Urine cultures grew E. coli, and were growing a gram positive cocci on discharge. Cultures need to be followed up for sensitivities. He is discharged on Augmentin through 11/17/18. Orders not resulted at time of discharge: Pending orders 11/04/18 22:47 Culture,Blood [BC] Stat 11/05/18 00:35 Culture,Urine [RM] Stat 11/05/18 16:26 Culture,Blood [BC] Routine Date of Encounter: 11/07/18 Time of Encounter: 17:20 - Discharge Diagnosis (1) Pyelonephritis Priority: Primary Status: Acute (2) Hypoglycemia Priority: Secondary Status: Resolved (3) KANDIS (acute kidney injury) Priority: Primary Status: Acute (4) Hypertension Priority: Secondary Status: Chronic Qualifiers: Hypertension type: essential hypertension Qualified Code(s): I10 - Essential (primary) hypertension (5) Type 2 diabetes mellitus Priority: Secondary Status: Chronic 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 Horton is a 78 year old male with a past medical history of hypertension and diabetes who presented to the emergency room feeling unwell for a few days and hypoglycemia. He had not eaten much food or drank many fluids for 2 days prior to admission because of nausea and vomiting. He also reported generalized malaise and abdominal pain. He continued to take his diabetic medications despite decreased oral intake. He reported being diagnosed with an obstructive kidney stone about 2 weeks ago and was to undergo expectant observation for management. He presented with a low-grade fever and elevated serum creatinine. Cloudy urine with nitrites and leukocyte esterase was noted on UA. CT scan of the abdomen and pelvis showed inflammatory changes involving the left kidney and an area of franklin-nephric fat stranding with slight dilation of the left renal collecting system with no evidence of obstructing calculus, suggesting recent passage of a calculus. Urology was consulted for calculus concerns. He was treated with IV fluids and empiric antibiotics, and admitted for additional care. During his first night, he was hypoglycemic, at around 7 AM on 11/05/18 his glucose was 28. At that time he was somnolent and groggy. Treated with oral and IV glucose solutions and his blood glucose and mental status improved quickly. Glucose has been stable since then. Blood cultures have grown Escherichia coli, urine cultures grew E. coli and were growing a gram positive cocci at time of discharge. Infectious disease was consulted for abx recommendations. Repeat blood cultures are pending with no growth to date at time of discharge. Treated for pyelonephritis, hypoglycemia, and acute kidney injury. He will be discharged on Augmentin to complete a 14-day course for pyelonephritis and bacteremia. Abdominal pain had resolved and patient's appetite had returned prior to discharge. He was discharged with instructions to follow-up with his primary care provider and infectious disease. Dx: Pyelonephritis Pertinent tests/consults: Urology, infectious disease Follow up: Primary care, infectious disease Tests pending: Urine cultures Med changes: Add augmentin Mental status: awake, fully oriented Code status: Full Code - Time Spent with Patient Total time spent providing and/or coordinating discharge services: - Discharge Medications Prescriptions: New Amoxicillin/Clavulanate [Augmentin] 875 mg PO BIDWM 11 Days #22 tablet Continued hydroCHLOROthiazide [Hydrochlorothiazide] 25 mg PO DAILY Aspirin 81 mg PO DAILY Simvastatin [Zocor] 40 mg PO DAILY Pioglitazone HCl [Actos] 30 mg PO HS Metformin HCl [Glucophage] 1,000 mg PO BID Lisinopril [Zestril] 40 mg PO DAILY GlipiZIDE XL (24 HR) [Glucotrol XL] 10 mg PO BID Home Medications: Aspirin 81 mg PO DAILY 10/13/16 [History] GlipiZIDE XL (24 HR) [Glucotrol XL] 10 mg PO BID 10/13/16 [History] Lisinopril [Zestril] 40 mg PO DAILY 10/13/16 [History] Metformin HCl [Glucophage] 1,000 mg PO BID 10/13/16 [History] Pioglitazone HCl [Actos] 30 mg PO HS 10/13/16 [History] Simvastatin [Zocor] 40 mg PO DAILY 10/13/16 [History] hydroCHLOROthiazide [Hydrochlorothiazide] 25 mg PO DAILY 10/13/16 [History] Amoxicillin/Clavulanate [Augmentin] 875 mg PO BIDWM 11 Days #22 tablet 11/07/18 [Rx] Allergies/Adverse Reactions: Allergy/AdvReac Type Severity Reaction Status Date / Time chocolate flavor Allergy Rash Verified 11/06/18 16:18 Date of admission: 11/05/18 01:39 Primary care physician: Ray Culver MD Consults: 11/05/18 08:18 Consult to Urology [CONS] Routine Consulting Provider: Urology [facility] Reason for Consult: hydronephrosis with recent calculus on CT scan Call Completed: No 11/07/18 13:10 Consult to Infectious Diseases [CONS] Routine Consulting Provider: Infectious Disease [place] Reason for Consult: E. coli bacteremia. E. coli and Gram positive urine. Call Completed: No Discharging clinician: Saúl Torres Anticipated date of discharge: 11/07/18 - Constitutional Vitals: Temp Pulse Resp BP Pulse Ox 98.5 F 64 16 117/68 96 11/07/18 14:21 11/07/18 14:21 11/07/18 14:21 11/07/18 14:21 11/07/18 14:21 Exam: Gen: Vitals noted. No acute distress. Sitting comfortably on edge of bed Eyes: anicteric sclerae, moist conjunctivae, Pupils equal, round, and reactive to light HENT: Atraumatic, normocephalic; oropharynx clear with moist mucous membranes and no mucosal ulcerations Neck: Trachea midline; supple, no thyromegaly or lymphadenopathy Cardiac: RRR, no murmurs, rubs or gallops, S1/S2 Pulmonary: CTA bilaterally, no wheezes, rales or rhonchi, equal chest expansion Abdomen: soft, nontender, no rigidity or guarding. No masses or hepatosplenomegaly MSK: ROM intact, no joint swelling noted Extremities: no BLE edema, nontender calf, no cyanosis or clubbing Skin: Normal temperature, turgor and texture; no rash, ulcers or subcutaneous nodules Neuro: moves all extremities, no focal deficits. Psych: Appropriate mood and behavior. A&Ox3 - Patient Status Disposition: Home, Self-Care Condition: Fair - Discharge Instructions Follow Up With: Noreen Field MD [Partnered Physician] - (Follow-up in 5-7 days. Web request entered. Office will call with date and time of appointment.) Ray Culver MD [Primary Care Provider] - (Call your Primary Physician and schedule a follow-up. ) <Oj Alejandrao A - Last Filed: 11/07/18 20:10> Orders not resulted at time of discharge: Pending orders 11/04/18 22:47 Culture,Blood [BC] Stat 11/05/18 00:35 Culture,Urine [RM] Stat 11/05/18 16:26 Culture,Blood [BC] Routine Date of Encounter: 11/07/18 Hospital course: Mr. Horton is a 78 year old male - Time Spent with Patient Total time spent providing and/or coordinating discharge services: Date of admission: 11/05/18 01:39 Primary care physician: Ray uClver MD Consults: 11/05/18 08:18 Consult to Urology [CONS] Routine Consulting Provider: Urology [facility] Reason for Consult: hydronephrosis with recent calculus on CT scan Call Completed: No 11/07/18 13:10 Consult to Infectious Diseases [CONS] Routine Consulting Provider: Infectious Disease [facility] Reason for Consult: E. coli bacteremia. E. coli and Gram positive urine. Call Completed: No - Constitutional Vitals: Temp Pulse Resp BP Pulse Ox 98.5 F 64 16 117/68 96 11/07/18 14:21 11/07/18 14:21 11/07/18 14:21 11/07/18 14:21 11/07/18 14:21 - Attending Attestation I have seen and independently assessed this patient and I agree with plan as documented Exam Gen. NAD CVS. S1 s2 WNL Resp. CTAB GI. Soft, NT, ND Plan Sepsis with e.coli and gram positive cocci pyelonpehritis. To complete course of augmentin. Counseled to await sensitivities but wants to go home.Will need to follow up with ID for urine culture sensitivities. 35 minutes was spent discharging this patient Hypoglycemia 2/2 to oral hypoglycemics. D50 as needed. continue diabetic diet
== END 2018-11-07 17:54 | disposition home or self-care (01) | DRG 872 ==
LOC: EMEROOARM 22:15 → 3ANU 22:15
PROVIDERS: ADMIT Internal Medicine Nephrology; ATTEND Internal Medicine Nephrology

== ENCOUNTER 2019-08-08 08:34 | Observation (INO) ==
[2019-08-08] MEDS ORDERED: 0.9 % Sodium Chloride 500 ML IVC ONE (08:42)
[2019-08-08] MEDS ORDERED: *HR* Promethazine 25 MG/ML VIAL IVP PRN (08:57)
[2019-08-08] MEDS ORDERED: Acetaminophen 325 MG TABLET PO PRN (08:57)
[2019-08-08] MEDS ORDERED: Naloxone 0.4 MG/ML INJ IVP PRN (08:57)
[2019-08-08] MEDS ORDERED: D5% in Water 1,000 ML IVC PRN (09:00)
[2019-08-08] MEDS ORDERED: *HR* Dextrose 50 % in Water (Syg) 50 ML SYRINGE IVP PRN (09:00)
[2019-08-08] MEDS ORDERED: Dextrose Gel 15 GM/37.5 ML TUBE PO PRN ×2 (09:00)
[2019-08-08 09:40] LABS: Basophils # 0.1 K/mcL (0.0-0.2); Basophils % 0.7 %; Eosinophils # 0.4 K/mcL (0.0-0.6); Eosinophils % 5.2 %; Hematocrit 40.2 % (37.5-50.1); Hemoglobin 12.4 g/dL (12.9-16.9); Lymphocytes # 2.4 K/mcL (0.6-4.6); Lymphocytes % 31.4 %; Mean Corpuscular HGB Conc 30.8 g/dL (31.6-35.5); Mean Corpuscular Hemoglobin 30.6 pg (28.0-33.3); Mean Corpuscular Volume 99.3 fL (83.0-100.0); Mean Platelet Volume 9.3 fL (9.4-12.4); Monocytes # 0.9 K/mcL (0.0-1.3); Monocytes % 11.2 %; Neutrophils # 3.9 K/mcL (1.6-8.9); Platelet Count 263 K/mcL (140-400); Red Blood Count 4.05 M/mcL (4.19-5.50); Red Cell Distribution Width 16.2 % (11.5-14.5); Segmented Neutrophils % 50.5 %; White Blood Count 7.6 K/mcL (4.3-11.1)
[2019-08-08 09:46] LABS: BUN/Creatinine Ratio 18 (6-26); Blood Urea Nitrogen 23 mg/dL (8-23); Calcium 9.1 mg/dL (8.6-10.3); Carbon Dioxide 31 mEq/L (23-29); Chloride 103 mEq/L (98-107); Glucose 137 mg/dL (70-105); Osmolality,Calculated 298 (280-300); Potassium 4.4 mEq/L (3.5-5.1); Sodium 141 mEq/L (136-145); eGFR For African Americans > 60 (> 60); eGFR For Non-African Americans 56 (> 60)
[2019-08-08] MEDS ORDERED: Vancomycin 1,750 MG in 0.9 % Sodium Chloride 250 ML IVPB SCH (10:00)
[2019-08-08 10:31] LABS: Alanine Aminotransferase 14 Units/L (7-52); Albumin/Globulin Ratio 1.3 (1.1-2.2); Alkaline Phosphatase 67 Units/L (34-104); Aspartate Amino Transferase 18 Units/L (13-39); Bilirubin,Indirect 0.5 mg/dL (0.0-1.0); Bilirubin,Total 0.5 mg/dL (0.3-1.0); C-Reactive Protein 9 mg/L (Less than 10); Globulin 3.1 g/dL (2.4-3.5); Total Protein 7.1 g/dL (6.4-8.9)
[2019-08-08] MEDS: Piperacillin/Tazobactam 3.375 GM in 0.9 % Sodium Chloride Mini Bag 100 ML IVPB SCH ×3 (10:59→23:30)
[2019-08-08] MEDS: Insulin DETEMIR 100 UNIT/ML X5UNITS SQ SCH ×2 (10:59→21:16)
[2019-08-08] MEDS: Insulin LISPRO 300 UNITS/3 ML VIAL SQ SCH ×2 (12:44→17:10)
[2019-08-08] MEDS ORDERED: Clindamycin 600 MG/50 ML 600 MG/50 ML IV.SOLN IVPB SCH (16:00)
[2019-08-08] MEDS: *HR* Heparin 5,000 UNIT/ML VIAL SQ SCH (17:13)
[2019-08-09] MEDS: *HR* Heparin 5,000 UNIT/ML VIAL SQ SCH ×2 (06:05→17:44)
[2019-08-09 06:29] LABS: INR 0.9; Prothrombin Time 10.7 Seconds (9.4-12.1)
[2019-08-09 06:32] LABS: Activated Partial Thrombo Time 27.7 Seconds (26.0-36.0); Basophils % 0.5 %; Eosinophils # 0.5 K/mcL (0.0-0.6); Hematocrit 34.8 % (37.5-50.1); Hemoglobin 10.9 g/dL (12.9-16.9); Immature Granulocytes % 0.5 % (0-4); Lymphocytes # 1.9 K/mcL (0.6-4.6); Lymphocytes % 24.6 %; Mean Corpuscular HGB Conc 31.3 g/dL (31.6-35.5); Mean Corpuscular Volume 98.9 fL (83.0-100.0); Mean Platelet Volume 9.3 fL (9.4-12.4); Monocytes # 0.8 K/mcL (0.0-1.3); Monocytes % 10.6 %; Neutrophils # 4.5 K/mcL (1.6-8.9); Platelet Count 218 K/mcL (140-400); Red Blood Count 3.52 M/mcL (4.19-5.50); Red Cell Distribution Width 16.1 % (11.5-14.5); Segmented Neutrophils % 57.8 %; White Blood Count 7.7 K/mcL (4.3-11.1)
[2019-08-09 08:29] LABS: BUN/Creatinine Ratio 16 (6-26); Blood Urea Nitrogen 19 mg/dL (8-23); Calcium 8.6 mg/dL (8.6-10.3); Carbon Dioxide 28 mEq/L (23-29); Chloride 104 mEq/L (98-107); Glucose 96 mg/dL (70-105); Magnesium 1.8 mg/dL (1.6-2.6); Osmolality,Calculated 288 (280-300); Potassium 4.4 mEq/L (3.5-5.1); Sodium 138 mEq/L (136-145); eGFR For African Americans > 60 (> 60); eGFR For Non-African Americans 59 (> 60)
[2019-08-09] MEDS: Piperacillin/Tazobactam 3.375 GM in 0.9 % Sodium Chloride Mini Bag 100 ML IVPB SCH ×2 (08:55→16:10)
[2019-08-09] MEDS: hydroCHLOROthiazide 25 MG TABLET PO SCH (08:57)
[2019-08-09] MEDS: lisinopriL 20 MG TABLET PO SCH (08:57)
[2019-08-09] MEDS: Insulin LISPRO 300 UNITS/3 ML VIAL SQ SCH ×3 (08:57→17:44)
[2019-08-09] MEDS: Aspirin 81 MG TAB.CHEW PO SCH (08:57)
[2019-08-09] MEDS: Insulin DETEMIR 100 UNIT/ML X5UNITS SQ SCH (09:14)
[2019-08-09] MEDS ORDERED: Melatonin 3 MG TABLET PO ONE (20:54)
[2019-08-10] MEDS: Piperacillin/Tazobactam 3.375 GM in 0.9 % Sodium Chloride Mini Bag 100 ML IVPB SCH ×2 (00:42→09:08)
[2019-08-10] MEDS: *HR* Heparin 5,000 UNIT/ML VIAL SQ SCH (04:50)
[2019-08-10 07:12] VITALS: BP 149/79
[2019-08-10] MEDS: lisinopriL 20 MG TABLET PO SCH (09:09)
[2019-08-10] MEDS: hydroCHLOROthiazide 25 MG TABLET PO SCH (09:09)
[2019-08-10] MEDS: Insulin LISPRO 300 UNITS/3 ML VIAL SQ SCH (09:09)
[2019-08-10] MEDS: Aspirin 81 MG TAB.CHEW PO SCH (09:09)
== END 2019-08-10 12:55 | disposition home or self-care (01) ==
LOC: 3ANU 08:34 → EMEROOARM 08:34 → 3ANU 10:09
PROVIDERS: ADMIT Internal Medicine; ATTEND Internal Medicine

== ENCOUNTER 2020-05-30 09:45 | Inpatient (IN) ==
[2020-05-30] MEDS ORDERED: *HR* Dextrose 50 % in Water (Vial) 50 ML VIAL ONE (09:50)
[2020-05-30] MEDS ORDERED: *HR* Dextrose 50 % in Water (Vial) 50 ML VIAL IVP ONE ×2 (09:55→09:56)
[2020-05-30 10:29] LABS: Basophils % 0.4 %; Hematocrit 37.1 % (37.5-50.1); Hemoglobin 11.6 g/dL (12.9-16.9); Immature Granulocytes % 0.4 % (0-4); Lymphocytes # 1.2 K/mcL (0.6-4.6); Lymphocytes % 25.8 %; Mean Corpuscular HGB Conc 31.3 g/dL (31.6-35.5); Mean Corpuscular Hemoglobin 30.8 pg (28.0-33.3); Mean Corpuscular Volume 98.4 fL (83.0-100.0); Mean Platelet Volume 9.8 fL (9.4-12.4); Monocytes # 0.6 K/mcL (0.0-1.3); Monocytes % 12.5 %; Neutrophils # 2.9 K/mcL (1.6-8.9); Platelet Count 176 K/mcL (140-400); Red Blood Count 3.77 M/mcL (4.19-5.50); Red Cell Distribution Width 15.9 % (11.5-14.5); Segmented Neutrophils % 60.9 %; White Blood Count 4.7 K/mcL (4.3-11.1)
[2020-05-30] MEDS ORDERED: cefTRIAXone 1,000 MG in 0.9 % Sodium Chloride Mini Bag 100 ML IVPB ONE (10:42)
[2020-05-30] MEDS ORDERED: Azithromycin 500 MG in 0.9 % Sodium Chloride 250 ML IVPB ONE (10:42)
[2020-05-30 10:44] LABS: INR 1.1; Prothrombin Time 13.1 Seconds (9.4-12.1)
[2020-05-30 10:47] LABS: Activated Partial Thrombo Time 25.9 Seconds (26.0-36.0)
[2020-05-30 10:51] LABS: Albumin 3.4 g/dL (3.5-5.7); Albumin/Globulin Ratio 1.1 (1.1-2.2); Bilirubin,Direct 0.1 mg/dL (0.0-0.2); Bilirubin,Indirect 0.2 mg/dL (0.0-1.0); Bilirubin,Total 0.3 mg/dL (0.3-1.0); Globulin 3.2 g/dL (2.4-3.5); Magnesium 1.7 mg/dL (1.6-2.6); Potassium 4.4 mEq/L (3.5-5.1); Total Protein 6.6 g/dL (6.4-8.9); Troponin I 0.03 ng/mL (< 0.04)
[2020-05-30] MEDS ORDERED: 0.9 % Sodium Chloride 1,000 ML IVC ONE (10:57)
[2020-05-30 11:12] LABS: Amorphous Sediment,Urine Few per hpf (None-Few); Bacteria,Urine Few per hpf (None-Few); Bilirubin,Urine Negative (Negative); Blood,Urine Large (Negative); Clarity,Urine Turbid (Clear); Color,Urine Light-Yellow (Yellow); Glucose,Urine (UA) 100 mg/dL (Normal); Ketones,Urine Negative (Negative); Leukocyte Esterase,Urine Negative (Negative); Mucus,Urine Few per lpf (None-Few); Nitrite,Urine Negative (Negative); Protein,Urine 70 mg/dL (Neg-Trace); RBC,Urine 0-3 per hpf (0-3); Specific Gravity,Urine 1.017 (1.010-1.025); Squamous Epithelial Cell,Urine Few per hpf (None-Few); Urobilinogen,Urine Normal (Normal); WBC,Urine 0-3 per hpf (0-3)
[2020-05-30] MEDS ORDERED: Ondansetron 4 MG/2 ML VIAL IVP PRN (13:37)
[2020-05-30] MEDS ORDERED: Naloxone 0.4 MG/ML INJ IVP PRN (13:37)
[2020-05-30] MEDS ORDERED: *HR* HYDROcodone/Acet 5/325 mg TABLET PO PRN (13:37)
[2020-05-30] MEDS: Acetaminophen 325 MG TABLET PO PRN (16:00)
[2020-05-30] MEDS ORDERED: *HR* Dextrose 50 % in Water (Vial) 50 ML VIAL IVP PRN (16:31)
[2020-05-30] MEDS ORDERED: D5% in Water 1,000 ML IVC PRN (16:31)
[2020-05-30] MEDS ORDERED: Dextrose Gel 15 GM/37.5 ML TUBE PO PRN ×2 (16:31)
[2020-05-30 16:36] LABS: ABG Base Excess -1 mEq/L (-2 to 3); ABG HCO3 24 mEq/L (21-27); ABG Oxygen Saturation 92 % (95-98); ABG PCO2 41 mmHg (35-45); ABG PH 7.38 pH Units (7.32-7.45); ABG PO2 65 mmHg (85-104); ABG TCO2 25 mEq/L (20-26)
[2020-05-30 17:25] LABS: Estimated Average Glucose 151 mg/dl; Hemoglobin A1C 6.9 %
[2020-05-30] MEDS ORDERED: Benzonatate 100 MG CAPSULE PO PRN (17:33)
[2020-05-30] MEDS ORDERED: Melatonin 3 MG TABLET PO PRN (17:33)
[2020-05-30] MEDS ORDERED: Calcium Gluconate 1gm/50mL 1 GM/50 ML BAG IVPB SCH (18:00)
[2020-05-30] MEDS: Dexamethasone 4 MG/ML VIAL IVP SCH (18:40)
[2020-05-30] MEDS: Ipratropium 1 PUFF INHALER IH SCH ×2 (20:07→23:12)
[2020-05-31 00:30] LABS: Basophils % 0.3 %; Hematocrit 35.8 % (37.5-50.1); Hemoglobin 11.4 g/dL (12.9-16.9); Immature Granulocytes % 0.3 % (0-4); Lymphocytes # 0.9 K/mcL (0.6-4.6); Mean Corpuscular HGB Conc 31.8 g/dL (31.6-35.5); Mean Corpuscular Hemoglobin 31.1 pg (28.0-33.3); Mean Corpuscular Volume 97.8 fL (83.0-100.0); Mean Platelet Volume 9.8 fL (9.4-12.4); Monocytes # 0.2 K/mcL (0.0-1.3); Monocytes % 5.7 %; Neutrophils # 2.8 K/mcL (1.6-8.9); Platelet Count 163 K/mcL (140-400); Red Blood Count 3.66 M/mcL (4.19-5.50); Red Cell Distribution Width 15.9 % (11.5-14.5); Segmented Neutrophils % 71.7 %; White Blood Count 3.9 K/mcL (4.3-11.1)
[2020-05-31 00:50] LABS: Albumin 3.2 g/dL (3.5-5.7); Bilirubin,Total 0.3 mg/dL (0.3-1.0); Calcium 8.5 mg/dL (8.6-10.3); Chol/HDL Ratio 2.9 (0-4.9); Globulin 3.2 g/dL (2.4-3.5); Magnesium 2.1 mg/dL (1.6-2.6); Phosphorous 3.4 mg/dL (2.7-4.5); Potassium 4.9 mEq/L (3.5-5.1); Total Protein 6.4 g/dL (6.4-8.9)
[2020-05-31 00:51] LABS: % Iron Saturation 5 % (20-55); C-Reactive Protein 80 mg/L (Less than 10); Iron 13 mcg/dL (65-175); Lactate Dehydrogenase 273 Units/L (140-271); Transferrin 191 mg/dL (203-362)
[2020-05-31 00:53] LABS: Troponin I 0.03 ng/mL (< 0.04)
[2020-05-31 01:06] LABS: Thyroid Stimulating Hormone 0.269 mcIU/mL (0.340-5.600)
[2020-05-31 01:09] LABS: Ferritin 315 ng/mL (20-250)
[2020-05-31 01:14] LABS: Folate 18.3 ng/mL (3.0-16.0)
[2020-05-31 01:21] LABS: Vitamin B12 < 50 pg/mL (250-1100)
[2020-05-31] MEDS: Ipratropium 1 PUFF INHALER IH SCH ×5 (03:59→20:36)
[2020-05-31] MEDS ORDERED: *HR* Enoxaparin 40 MG/0.4 ML SYRINGE SQ SCH (06:00)
[2020-05-31] MEDS ORDERED: Iron Sucrose Complex 400 MG in 0.9 % Sodium Chloride 250 ML IVPB ONE (07:28)
[2020-05-31] MEDS: Dexamethasone 4 MG/ML VIAL IVP SCH (08:58)
[2020-05-31] MEDS: Aspirin 81 MG TAB.CHEW PO SCH (08:58)
[2020-05-31] MEDS: Insulin LISPRO 300 UNITS/3 ML VIAL SUBQ SCH ×3 (09:00→18:25)
[2020-05-31] MEDS: cefTRIAXone 1,000 MG in Water for inj. (sterile) 10 ML IVP SCH (09:01)
[2020-05-31] MEDS ORDERED: Azithromycin 250 MG TABLET PO SCH (12:00)
[2020-05-31 20:04] LABS: Uric Acid 11.8 mg/dL (2.3-7.6)
[2020-05-31] MEDS ORDERED: Insulin LISPRO 300 UNITS/3 ML VIAL SUBQ SCH (21:00)
[2020-06-01] MEDS: Ipratropium 1 PUFF INHALER IH SCH ×5 (00:01→16:03)
[2020-06-01 03:44] LABS: Sodium, Urine 77.2 mEq/L
[2020-06-01] MEDS ORDERED: *HR* Enoxaparin 30 MG/0.3 ML SYRINGE SQ SCH (06:00)
[2020-06-01 06:39] LABS: Eosinophils % 0.1 %; Immature Granulocytes % 0.4 % (0-4); Mean Corpuscular Volume 95.4 fL (83.0-100.0)
[2020-06-01 06:41] LABS: Basophils % 0.3 %; Hematocrit 37.4 % (37.5-50.1); Hemoglobin 12.1 g/dL (12.9-16.9); Immature Platelets 3.6 % (1.1-6.1); Lymphocytes # 0.9 K/mcL (0.6-4.6); Lymphocytes % 12.3 %; Mean Corpuscular HGB Conc 32.4 g/dL (31.6-35.5); Mean Corpuscular Hemoglobin 30.9 pg (28.0-33.3); Mean Platelet Volume 10.7 fL (9.4-12.4); Monocytes # 0.4 K/mcL (0.0-1.3); Monocytes % 6.2 %; Platelet Count 121 K/mcL (140-400); Red Blood Count 3.92 M/mcL (4.19-5.50); Red Cell Distribution Width 15.5 % (11.5-14.5); Segmented Neutrophils % 80.7 %
[2020-06-01 06:42] LABS: Neutrophils # 5.7 K/mcL (1.6-8.9)
[2020-06-01 07:02] LABS: Albumin 3.3 g/dL (3.5-5.7); Bilirubin,Total 0.3 mg/dL (0.3-1.0); Calcium 8.7 mg/dL (8.6-10.3); Globulin 3.3 g/dL (2.4-3.5); Potassium 4.6 mEq/L (3.5-5.1); Total Protein 6.6 g/dL (6.4-8.9)
[2020-06-01] MEDS ORDERED: Cyanocobalamin (B-12) 1,000 MCG TABLET PO SCH (09:00)
[2020-06-01] MEDS: Insulin LISPRO 300 UNITS/3 ML VIAL SUBQ SCH ×2 (10:13→11:36)
[2020-06-01] MEDS: Dexamethasone 4 MG/ML VIAL IVP SCH (10:14)
[2020-06-01] MEDS: Aspirin 81 MG TAB.CHEW PO SCH (10:14)
[2020-06-01] MEDS: cefTRIAXone 1,000 MG in Water for inj. (sterile) 10 ML IVP SCH (10:14)
[2020-06-01 11:21] VITALS: BP 139/63
[2020-06-01] MEDS: Acetaminophen 325 MG TABLET PO PRN (11:35)
[2020-06-01] MEDS ORDERED: Azithromycin 250 MG TABLET PO SCH (12:00)
== END 2020-06-01 16:15 | disposition home health service (06) | DRG 871 ==
LOC: EMEROOARM 09:45 → 2NENU 09:45 → SUATTDRO 13:37 → 2NENU 14:55
PROVIDERS: ADMIT Internal Medicine; ATTEND Family Medicine

== ENCOUNTER 2020-06-04 10:55 | Inpatient (IN) ==
[2020-06-04 12:16] LABS: Calcium 8.9 mg/dL (8.6-10.3); Potassium 4.8 mEq/L (3.5-5.1); Troponin I 0.03 ng/mL (< 0.04)
[2020-06-04 12:17] LABS: Basophils # 0.1 K/mcL (0.0-0.2); Basophils % 0.4 %; Hematocrit 38.6 % (37.5-50.1); Lymphocytes # 0.8 K/mcL (0.6-4.6); Lymphocytes % 6.8 %; Mean Corpuscular HGB Conc 31.1 g/dL (31.6-35.5); Mean Corpuscular Hemoglobin 30.2 pg (28.0-33.3); Mean Corpuscular Volume 97.2 fL (83.0-100.0); Mean Platelet Volume 10.6 fL (9.4-12.4); Monocytes # 0.5 K/mcL (0.0-1.3); Monocytes % 4.3 %; Nucleated Red Blood Cells 0.3 /100 WBC (0); Platelet Count 244 K/mcL (140-400); Red Blood Count 3.97 M/mcL (4.19-5.50); Red Cell Distribution Width 15.8 % (11.5-14.5); Segmented Neutrophils % 85.5 %
[2020-06-04 12:20] LABS: Neutrophils # 9.8 K/mcL (1.6-8.9); White Blood Count 11.5 K/mcL (4.3-11.1)
[2020-06-04] MEDS ORDERED: Naloxone 0.4 MG/ML INJ IVP PRN (13:50)
[2020-06-04] MEDS ORDERED: Ondansetron 4 MG/2 ML VIAL IVP PRN (13:50)
[2020-06-04] MEDS ORDERED: Acetaminophen 325 MG TABLET PO PRN (13:50)
[2020-06-04] MEDS ORDERED: Dextrose Gel 15 GM/37.5 ML TUBE PO PRN ×2 (13:50)
[2020-06-04] MEDS ORDERED: *HR* Dextrose 50 % in Water (Vial) 50 ML VIAL IVP PRN (13:50)
[2020-06-04] MEDS ORDERED: D5% in Water 1,000 ML IVC PRN (13:50)
[2020-06-04] MEDS ORDERED: Azithromycin 250 MG TABLET PO SCH (14:00)
[2020-06-04] MEDS ORDERED: 0.9 % Sodium Chloride 1,000 ML IVC SCH (14:15)
[2020-06-04] MEDS: Insulin LISPRO 300 UNITS/3 ML VIAL SUBQ SCH ×2 (18:17→22:02)
[2020-06-04] MEDS: Cyanocobalamin (B-12) 1,000 MCG TABLET PO SCH (18:18)
[2020-06-04] MEDS: *HR* Heparin 5,000 UNIT/ML VIAL SQ SCH (18:21)
[2020-06-04] MEDS ORDERED: Benzonatate 100 MG CAPSULE PO PRN (18:37)
[2020-06-05 00:57] LABS: Bilirubin,Urine Negative (Negative); Blood,Urine Moderate (Negative); Clarity,Urine Clear (Clear); Color,Urine Light-Yellow (Yellow); Glucose,Urine (UA) >=1000 mg/dL (Normal); Ketones,Urine Negative (Negative); Leukocyte Esterase,Urine Negative (Negative); Mucus,Urine Few per lpf (None-Few); Nitrite,Urine Negative (Negative); PH,Urine 5.5 pH Units (5.0-8.0); Protein,Urine 50 mg/dL (Neg-Trace); RBC,Urine 0-3 per hpf (0-3); Specific Gravity,Urine 1.021 (1.010-1.025); Squamous Epithelial Cell,Urine Few per hpf (None-Few); Urobilinogen,Urine Normal (Normal); WBC,Urine 0-3 per hpf (0-3)
[2020-06-05 01:46] LABS: Basophils # 0.1 K/mcL (0.0-0.2); Basophils % 0.4 %; Hematocrit 39.5 % (37.5-50.1); Hemoglobin 12.5 g/dL (12.9-16.9); Immature Granulocytes % 2.2 % (0-4); Lymphocytes # 1.1 K/mcL (0.6-4.6); Lymphocytes % 9.2 %; Mean Corpuscular HGB Conc 31.6 g/dL (31.6-35.5); Mean Corpuscular Hemoglobin 30.8 pg (28.0-33.3); Mean Corpuscular Volume 97.3 fL (83.0-100.0); Mean Platelet Volume 10.6 fL (9.4-12.4); Monocytes # 0.4 K/mcL (0.0-1.3); Monocytes % 3.2 %; Neutrophils # 9.7 K/mcL (1.6-8.9); Platelet Count 233 K/mcL (140-400); Red Blood Count 4.06 M/mcL (4.19-5.50); Red Cell Distribution Width 15.9 % (11.5-14.5); White Blood Count 11.4 K/mcL (4.3-11.1)
[2020-06-05 01:59] LABS: Calcium 8.9 mg/dL (8.6-10.3); Potassium 4.9 mEq/L (3.5-5.1)
[2020-06-05] MEDS: *HR* Heparin 5,000 UNIT/ML VIAL SQ SCH ×3 (05:25→20:36)
[2020-06-05] MEDS: Aspirin 81 MG TAB.CHEW PO SCH (07:53)
[2020-06-05] MEDS: Insulin LISPRO 300 UNITS/3 ML VIAL SUBQ SCH ×4 (07:53→20:36)
[2020-06-05] MEDS: Cyanocobalamin (B-12) 1,000 MCG TABLET PO SCH (07:54)
[2020-06-05] MEDS ORDERED: dexAMETHasone 4 MG TABLET PO SCH (09:00)
[2020-06-05] MEDS ORDERED: lisinopriL 20 MG TABLET PO SCH (09:00)
[2020-06-05] MEDS ORDERED: Ipratropium 1 PUFF INHALER IH SCH (10:00)
[2020-06-05] MEDS ORDERED: Saline Nasal Spray 44 ML BOTTLE NS PRN (12:09)
[2020-06-05] MEDS: Furosemide 20 MG/2 ML VIAL IVP SCH (12:54)
[2020-06-05 14:10] LABS: Estimated Average Glucose 177 mg/dl; Hemoglobin A1C 7.8 %
[2020-06-05] MEDS: Insulin DETEMIR 100 UNIT/ML X5UNITS SUBQ SCH (14:23)
[2020-06-05] MEDS: Ipratropium 1 PUFF INHALER IH SCH ×2 (15:34→20:03)
[2020-06-05] MEDS: Artificial Tears SOLN 15 ML BOTTLE BOTH EYES SCH (20:36)
[2020-06-06] MEDS: Ipratropium 1 PUFF INHALER IH SCH ×7 (00:04→23:30)
[2020-06-06] MEDS: *HR* Heparin 5,000 UNIT/ML VIAL SQ SCH ×3 (04:48→22:09)
[2020-06-06 05:53] LABS: Basophils # 0.1 K/mcL (0.0-0.2); Basophils % 0.5 %; Eosinophils % 0.2 %; Hematocrit 38.2 % (37.5-50.1); Hemoglobin 12.1 g/dL (12.9-16.9); Immature Granulocytes % 4.6 % (0-4); Lymphocytes % 9.5 %; Mean Corpuscular HGB Conc 31.7 g/dL (31.6-35.5); Mean Corpuscular Hemoglobin 30.7 pg (28.0-33.3); Mean Platelet Volume 10.6 fL (9.4-12.4); Monocytes # 0.5 K/mcL (0.0-1.3); Monocytes % 4.3 %; Neutrophils # 8.9 K/mcL (1.6-8.9); Platelet Count 256 K/mcL (140-400); Red Blood Count 3.94 M/mcL (4.19-5.50); Red Cell Distribution Width 15.2 % (11.5-14.5); Segmented Neutrophils % 80.9 %
[2020-06-06 06:19] LABS: Alanine Aminotransferase 30 Units/L (7-52); Albumin 2.8 g/dL (3.5-5.7); Albumin/Globulin Ratio 0.7 (1.1-2.2); Alkaline Phosphatase 52 Units/L (34-104); Aspartate Amino Transferase 28 Units/L (13-39); BUN/Creatinine Ratio 43 (6-26); Bilirubin,Total 0.4 mg/dL (0.3-1.0); Blood Urea Nitrogen 63 mg/dL (8-23); Calcium 8.9 mg/dL (8.6-10.3); Carbon Dioxide 24 mEq/L (23-29); Chloride 99 mEq/L (98-107); Globulin 3.8 g/dL (2.4-3.5); Glucose 314 mg/dL (70-105); Lactate Dehydrogenase 257 Units/L (140-271); Magnesium 1.8 mg/dL (1.6-2.6); Osmolality,Calculated 312 (280-300); Phosphorous 3.5 mg/dL (2.7-4.5); Potassium 4.7 mEq/L (3.5-5.1); Sodium 136 mEq/L (136-145); Total Protein 6.6 g/dL (6.4-8.9); eGFR For African Americans 56 (> 60); eGFR For Non-African Americans 46 (> 60)
[2020-06-06 07:20] LABS: Ferritin > 1500 ng/mL (20-250)
[2020-06-06] MEDS: Aspirin 81 MG TAB.CHEW PO SCH (08:43)
[2020-06-06] MEDS: Multivit/Ca/Min/Fe/FA 1 TAB TABLET PO SCH (08:43)
[2020-06-06] MEDS: Insulin LISPRO 300 UNITS/3 ML VIAL SUBQ SCH ×5 (08:43→19:43)
[2020-06-06] MEDS: Cyanocobalamin (B-12) 1,000 MCG TABLET PO SCH (08:43)
[2020-06-06] MEDS: Furosemide 20 MG/2 ML VIAL IVP SCH (08:44)
[2020-06-06] MEDS: Insulin DETEMIR 100 UNIT/ML X5UNITS SUBQ SCH ×2 (08:44→19:43)
[2020-06-06] MEDS: Artificial Tears SOLN 15 ML BOTTLE BOTH EYES SCH ×2 (08:45→19:42)
[2020-06-06 09:27] LABS: C-Reactive Protein 230 mg/L (Less than 10)
[2020-06-06] MEDS ORDERED: Azithromycin 250 MG TABLET PO SCH (12:30)
[2020-06-06] MEDS: cefTRIAXone 1,000 MG in 0.9 % Sodium Chloride Mini Bag 100 ML IVPB SCH (13:37)
[2020-06-07] MEDS: Ipratropium 1 PUFF INHALER IH SCH ×6 (03:33→23:04)
[2020-06-07] MEDS: *HR* Enoxaparin 40 MG/0.4 ML SYRINGE SQ SCH (04:46)
[2020-06-07] MEDS: Doxycycline 100 MG CAPSULE PO SCH ×2 (04:46→17:39)
[2020-06-07 05:50] LABS: Basophils % 1.1 %; Hematocrit 38.8 % (37.5-50.1); Hemoglobin 12.4 g/dL (12.9-16.9); Immature Granulocytes % 6.9 % (0-4); Lymphocytes # 1.2 K/mcL (0.6-4.6); Lymphocytes % 9.3 %; Mean Corpuscular Volume 93.9 fL (83.0-100.0); Monocytes # 0.6 K/mcL (0.0-1.3); Monocytes % 4.6 %; Neutrophils # 10.4 K/mcL (1.6-8.9); Nucleated Red Blood Cells 0.2 /100 WBC (0); Platelet Count 302 K/mcL (140-400); Red Blood Count 4.13 M/mcL (4.19-5.50); Red Cell Distribution Width 15.2 % (11.5-14.5); Segmented Neutrophils % 78.1 %; White Blood Count 13.3 K/mcL (4.3-11.1)
[2020-06-07 06:02] LABS: Basophils # 0.2 K/mcL (0.0-0.2)
[2020-06-07 06:23] LABS: Platelet Estimate Normal (Normal); Reactive Lymphocytes Present (Not Present); Toxic Granulation Present (Not Present)
[2020-06-07 07:30] LABS: Alanine Aminotransferase 38 Units/L (7-52); Albumin 2.8 g/dL (3.5-5.7); Albumin/Globulin Ratio 0.8 (1.1-2.2); Alkaline Phosphatase 50 Units/L (34-104); Aspartate Amino Transferase 38 Units/L (13-39); BUN/Creatinine Ratio 50 (6-26); Bilirubin,Total 0.5 mg/dL (0.3-1.0); Blood Urea Nitrogen 64 mg/dL (8-23); Calcium 8.8 mg/dL (8.6-10.3); Carbon Dioxide 24 mEq/L (23-29); Chloride 96 mEq/L (98-107); Globulin 3.7 g/dL (2.4-3.5); Glucose 333 mg/dL (70-105); Lactate Dehydrogenase 282 Units/L (140-271); Magnesium 2.2 mg/dL (1.6-2.6); Osmolality,Calculated 303 (280-300); Phosphorous 3.3 mg/dL (2.7-4.5); Potassium 4.9 mEq/L (3.5-5.1); Sodium 131 mEq/L (136-145); Total Protein 6.5 g/dL (6.4-8.9); eGFR For African Americans > 60 (> 60); eGFR For Non-African Americans 54 (> 60)
[2020-06-07 08:33] LABS: Ferritin > 1500 ng/mL (20-250)
[2020-06-07] MEDS: Insulin LISPRO 300 UNITS/3 ML VIAL SUBQ SCH ×6 (08:37→17:38)
[2020-06-07] MEDS: cefTRIAXone 1,000 MG in 0.9 % Sodium Chloride Mini Bag 100 ML IVPB SCH (08:38)
[2020-06-07] MEDS: Multivit/Ca/Min/Fe/FA 1 TAB TABLET PO SCH (08:39)
[2020-06-07] MEDS: Artificial Tears SOLN 15 ML BOTTLE BOTH EYES SCH ×2 (08:39→20:11)
[2020-06-07] MEDS: Furosemide 20 MG/2 ML VIAL IVP SCH (08:39)
[2020-06-07] MEDS: Insulin DETEMIR 100 UNIT/ML X5UNITS SUBQ SCH ×2 (08:39→20:14)
[2020-06-07] MEDS: Aspirin 81 MG TAB.CHEW PO SCH (08:39)
[2020-06-07] MEDS: Cyanocobalamin (B-12) 1,000 MCG TABLET PO SCH (08:40)
[2020-06-07 08:59] LABS: C-Reactive Protein 116 mg/L (Less than 10)
[2020-06-07] MEDS ORDERED: Insulin LISPRO 300 UNITS/3 ML VIAL SUBQ SCH (14:42)
[2020-06-07] MEDS: Melatonin 3 MG TABLET PO PRN (20:48)
[2020-06-08 00:54] LABS: Basophils % 0.9 %; Hematocrit 38.3 % (37.5-50.1); Hemoglobin 12.7 g/dL (12.9-16.9); Immature Granulocytes % 10.7 % (0-4); Lymphocytes # 1.1 K/mcL (0.6-4.6); Lymphocytes % 6.8 %; Mean Corpuscular HGB Conc 33.2 g/dL (31.6-35.5); Mean Corpuscular Hemoglobin 30.8 pg (28.0-33.3); Mean Platelet Volume 10.9 fL (9.4-12.4); Monocytes # 0.6 K/mcL (0.0-1.3); Monocytes % 3.9 %; Neutrophils # 12.3 K/mcL (1.6-8.9); Nucleated Red Blood Cells 0.2 /100 WBC (0); Platelet Count 304 K/mcL (140-400); Red Blood Count 4.12 M/mcL (4.19-5.50); Red Cell Distribution Width 14.7 % (11.5-14.5); Segmented Neutrophils % 77.7 %; White Blood Count 15.8 K/mcL (4.3-11.1)
[2020-06-08 01:20] LABS: Alanine Aminotransferase 46 Units/L (7-52); Albumin 2.9 g/dL (3.5-5.7); Albumin/Globulin Ratio 0.8 (1.1-2.2); Alkaline Phosphatase 53 Units/L (34-104); Aspartate Amino Transferase 33 Units/L (13-39); BUN/Creatinine Ratio 54 (6-26); Bilirubin,Total 0.5 mg/dL (0.3-1.0); Blood Urea Nitrogen 72 mg/dL (8-23); C-Reactive Protein 77 mg/L (Less than 10); Calcium 8.8 mg/dL (8.6-10.3); Carbon Dioxide 24 mEq/L (23-29); Chloride 95 mEq/L (98-107); Globulin 3.8 g/dL (2.4-3.5); Glucose 339 mg/dL (70-105); Lactate Dehydrogenase 258 Units/L (140-271); Magnesium 2.1 mg/dL (1.6-2.6); Osmolality,Calculated 303 (280-300); Phosphorous 3.1 mg/dL (2.7-4.5); Sodium 129 mEq/L (136-145); Total Protein 6.7 g/dL (6.4-8.9); eGFR For African Americans > 60 (> 60); eGFR For Non-African Americans 52 (> 60)
[2020-06-08 01:32] LABS: Basophils # 0.1 K/mcL (0.0-0.2)
[2020-06-08 01:40] LABS: Ferritin > 1500 ng/mL (20-250)
[2020-06-08 01:46] LABS: Platelet Estimate Normal (Normal)
[2020-06-08] MEDS: Ipratropium 1 PUFF INHALER IH SCH ×6 (03:09→23:16)
[2020-06-08] MEDS: Multivit/Ca/Min/Fe/FA 1 TAB TABLET PO SCH (09:41)
[2020-06-08] MEDS: Aspirin 81 MG TAB.CHEW PO SCH (09:41)
[2020-06-08] MEDS: Insulin DETEMIR 100 UNIT/ML X5UNITS SUBQ SCH ×2 (09:41→20:09)
[2020-06-08] MEDS: Cyanocobalamin (B-12) 1,000 MCG TABLET PO SCH (09:41)
[2020-06-08] MEDS: Insulin LISPRO 300 UNITS/3 ML VIAL SUBQ SCH ×7 (09:42→20:10)
[2020-06-08] MEDS: Artificial Tears SOLN 15 ML BOTTLE BOTH EYES SCH ×2 (09:43→20:10)
[2020-06-08] MEDS: cefTRIAXone 1,000 MG in 0.9 % Sodium Chloride Mini Bag 100 ML IVPB SCH (09:43)
[2020-06-08] MEDS ORDERED: Insulin Human Regular 5 UNIT in 0.9 % Sodium Chloride 10 ML IV ONE (14:44)
[2020-06-08] MEDS ORDERED: Saliva Stimulant 44.3ml BOTTLE PO PRN (15:37)
[2020-06-08] MEDS: lisinopriL 10 MG TABLET PO SCH (17:46)
[2020-06-08] MEDS: Doxycycline 100 MG CAPSULE PO SCH ×2 (17:47)
[2020-06-08] MEDS: *HR* Enoxaparin 40 MG/0.4 ML SYRINGE SQ SCH (19:14)
[2020-06-08] MEDS: Chlorhexidine Rinse 15 ML MOUTHWASH MM SCH (20:09)
[2020-06-09] MEDS: Ipratropium 1 PUFF INHALER IH SCH ×6 (03:31→23:21)
[2020-06-09] MEDS: *HR* Enoxaparin 40 MG/0.4 ML SYRINGE SQ SCH (05:33)
[2020-06-09] MEDS: Doxycycline 100 MG CAPSULE PO SCH ×2 (05:33→17:02)
[2020-06-09] MEDS: cefTRIAXone 1,000 MG in 0.9 % Sodium Chloride Mini Bag 100 ML IVPB SCH (09:59)
[2020-06-09] MEDS: Aspirin 81 MG TAB.CHEW PO SCH (10:00)
[2020-06-09] MEDS: Multivit/Ca/Min/Fe/FA 1 TAB TABLET PO SCH (10:00)
[2020-06-09] MEDS: Insulin LISPRO 300 UNITS/3 ML VIAL SUBQ SCH ×7 (10:00→20:08)
[2020-06-09] MEDS: lisinopriL 10 MG TABLET PO SCH (10:00)
[2020-06-09] MEDS: Cyanocobalamin (B-12) 1,000 MCG TABLET PO SCH (10:03)
[2020-06-09] MEDS: Insulin DETEMIR 100 UNIT/ML X5UNITS SUBQ SCH ×2 (10:04→19:57)
[2020-06-09] MEDS: Artificial Tears SOLN 15 ML BOTTLE BOTH EYES SCH ×2 (10:07→19:55)
[2020-06-09 11:23] LABS: Hematocrit 38.7 % (37.5-50.1); Hemoglobin 12.6 g/dL (12.9-16.9); Mean Corpuscular HGB Conc 32.6 g/dL (31.6-35.5); Mean Corpuscular Hemoglobin 30.3 pg (28.0-33.3); Mean Platelet Volume 11.3 fL (9.4-12.4); Nucleated Red Blood Cells 0.2 /100 WBC (0); Platelet Count 338 K/mcL (140-400); Red Blood Count 4.16 M/mcL (4.19-5.50); Red Cell Distribution Width 15.1 % (11.5-14.5)
[2020-06-09 11:25] LABS: White Blood Count 24.5 K/mcL (4.3-11.1)
[2020-06-09] MEDS: Chlorhexidine Rinse 15 ML MOUTHWASH MM SCH ×2 (12:12→19:53)
[2020-06-09 12:23] LABS: Calcium 8.6 mg/dL (8.6-10.3); Phosphorous 4.3 mg/dL (2.7-4.5)
[2020-06-09 12:25] LABS: Lymphocytes # 3.4 K/mcL (0.6-4.6); Monocytes # 1.5 K/mcL (0.0-1.3); Neutrophils # 19.6 K/mcL (1.6-8.9)
[2020-06-09 12:26] LABS: Platelet Estimate Normal (Normal); Reactive Lymphocytes Present (Not Present); Toxic Granulation Present (Not Present)
[2020-06-09] MEDS: *HR* Heparin 5,000 UNIT/ML VIAL SQ SCH ×2 (15:04→21:20)
[2020-06-09] MEDS: Melatonin 3 MG TABLET PO PRN (21:20)
[2020-06-10 01:33] LABS: Mean Corpuscular HGB Conc 32.3 g/dL (31.6-35.5); Nucleated Red Blood Cells 0.2 /100 WBC (0)
[2020-06-10 01:34] LABS: Hematocrit 39.6 % (37.5-50.1); Hemoglobin 12.8 g/dL (12.9-16.9); Mean Corpuscular Hemoglobin 30.1 pg (28.0-33.3); Mean Corpuscular Volume 93.2 fL (83.0-100.0); Mean Platelet Volume 11.5 fL (9.4-12.4); Platelet Count 318 K/mcL (140-400); Red Blood Count 4.25 M/mcL (4.19-5.50); Red Cell Distribution Width 15.1 % (11.5-14.5); White Blood Count 25.8 K/mcL (4.3-11.1)
[2020-06-10 01:53] LABS: Anisocytosis 1+ (Not Present); Lymphocytes # 2.6 K/mcL (0.6-4.6); Monocytes # 2.6 K/mcL (0.0-1.3); Neutrophils # 18.6 K/mcL (1.6-8.9); Platelet Estimate Normal (Normal); Toxic Granulation Present (Not Present)
[2020-06-10 02:12] LABS: Calcium 8.3 mg/dL (8.6-10.3); Magnesium 2.2 mg/dL (1.6-2.6); Phosphorous 4.5 mg/dL (2.7-4.5); Potassium 5.4 mEq/L (3.5-5.1)
[2020-06-10] MEDS: Ipratropium 1 PUFF INHALER IH SCH ×6 (04:19→23:17)
[2020-06-10] MEDS: Doxycycline 100 MG CAPSULE PO SCH ×2 (06:03→16:38)
[2020-06-10] MEDS: *HR* Heparin 5,000 UNIT/ML VIAL SQ SCH ×2 (06:03→19:55)
[2020-06-10] MEDS: SODIUM ZIRCONIUM CYCLOSILICATE 5 GM POWD.PACK PO SCH (08:26)
[2020-06-10] MEDS: Multivit/Ca/Min/Fe/FA 1 TAB TABLET PO SCH (08:27)
[2020-06-10] MEDS: Aspirin 81 MG TAB.CHEW PO SCH (08:27)
[2020-06-10] MEDS: Cholecalciferol (D-3) 1,000 UNIT (25MCG) TABLET PO SCH (08:27)
[2020-06-10] MEDS: Artificial Tears SOLN 15 ML BOTTLE BOTH EYES SCH ×2 (08:28→19:30)
[2020-06-10] MEDS: Chlorhexidine Rinse 15 ML MOUTHWASH MM SCH ×2 (08:28→19:28)
[2020-06-10] MEDS: Insulin DETEMIR 100 UNIT/ML X5UNITS SUBQ SCH ×2 (08:35→19:29)
[2020-06-10] MEDS: Insulin LISPRO 300 UNITS/3 ML VIAL SUBQ SCH ×7 (08:35→19:29)
[2020-06-10] MEDS: cefTRIAXone 1,000 MG in 0.9 % Sodium Chloride Mini Bag 100 ML IVPB SCH (08:56)
[2020-06-10] MEDS: Cyanocobalamin (B-12) 1,000 MCG TABLET PO SCH (08:57)
[2020-06-10] MEDS ORDERED: *HR* Heparin 5,000 UNIT/ML VIAL ONE (19:54)
[2020-06-10] MEDS: Melatonin 3 MG TABLET PO PRN (19:55)
[2020-06-11] MEDS: Ipratropium 1 PUFF INHALER IH SCH ×3 (03:20→11:31)
[2020-06-11 03:27] LABS: Mean Corpuscular HGB Conc 32.8 g/dL (31.6-35.5); Mean Platelet Volume 11.6 fL (9.4-12.4); Nucleated Red Blood Cells 0.1 /100 WBC (0); Platelet Count 293 K/mcL (140-400); Red Cell Distribution Width 15.2 % (11.5-14.5)
[2020-06-11 03:28] LABS: Hematocrit 39.6 % (37.5-50.1); Mean Corpuscular Hemoglobin 30.9 pg (28.0-33.3); Mean Corpuscular Volume 94.1 fL (83.0-100.0); Monocytes # 1.1 K/mcL (0.0-1.3); Red Blood Count 4.21 M/mcL (4.19-5.50); White Blood Count 27.6 K/mcL (4.3-11.1)
[2020-06-11 03:37] LABS: % Iron Saturation 24 % (20-55); BUN/Creatinine Ratio 54 (6-26); Blood Urea Nitrogen 104 mg/dL (8-23); C-Reactive Protein 18 mg/L (Less than 10); Calcium 8.7 mg/dL (8.6-10.3); Carbon Dioxide 20 mEq/L (23-29); Chloride 97 mEq/L (98-107); Glucose 219 mg/dL (70-105); Iron 51 mcg/dL (65-175); Lactate Dehydrogenase 297 Units/L (140-271); Magnesium 2.2 mg/dL (1.6-2.6); Osmolality,Calculated 309 (280-300); Phosphorous 6.1 mg/dL (2.7-4.5); Potassium 5.2 mEq/L (3.5-5.1); Sodium 130 mEq/L (136-145); Transferrin 153 mg/dL (203-362); eGFR For African Americans 41 (> 60); eGFR For Non-African Americans 34 (> 60)
[2020-06-11 03:57] LABS: Ferritin > 1500 ng/mL (20-250); Folate 7.5 ng/mL (3.0-16.0)
[2020-06-11 04:10] LABS: Lymphocytes # 1.1 K/mcL (0.6-4.6); Neutrophils # 24.8 K/mcL (1.6-8.9); Platelet Estimate Normal (Normal); Toxic Granulation Present (Not Present)
[2020-06-11] MEDS: *HR* Heparin 5,000 UNIT/ML VIAL SQ SCH ×3 (05:36→13:32)
[2020-06-11] MEDS: Doxycycline 100 MG CAPSULE PO SCH (05:36)
[2020-06-11] MEDS: SODIUM ZIRCONIUM CYCLOSILICATE 5 GM POWD.PACK PO SCH (07:57)
[2020-06-11] MEDS: Chlorhexidine Rinse 15 ML MOUTHWASH MM SCH (07:58)
[2020-06-11] MEDS: Cholecalciferol (D-3) 1,000 UNIT (25MCG) TABLET PO SCH (07:58)
[2020-06-11] MEDS: Aspirin 81 MG TAB.CHEW PO SCH (07:58)
[2020-06-11] MEDS: Multivit/Ca/Min/Fe/FA 1 TAB TABLET PO SCH (07:58)
[2020-06-11] MEDS: Insulin DETEMIR 100 UNIT/ML X5UNITS SUBQ SCH (07:59)
[2020-06-11] MEDS: Insulin LISPRO 300 UNITS/3 ML VIAL SUBQ SCH ×4 (07:59→12:13)
[2020-06-11] MEDS: Cyanocobalamin (B-12) 1,000 MCG TABLET PO SCH (08:00)
[2020-06-11] MEDS: Artificial Tears SOLN 15 ML BOTTLE BOTH EYES SCH (08:00)
[2020-06-11 09:22] LABS: Uric Acid 12.3 mg/dL (2.3-7.6)
[2020-06-11 12:11] VITALS: BP 102/51
== END 2020-06-11 15:46 | disposition left against medical advice (07) | DRG 177 ==
LOC: 2NENU 10:55 → EMEROOARM 10:55 → SUATTDRO 14:18 → 2NENU 15:40
PROVIDERS: ADMIT Internal Medicine; ATTEND Internal Medicine